=== PATIENT | male | born 1975 | race Caucasian/White ===

== ENCOUNTER 2023-07-08 06:53 | Outpatient (CLI) | payer MEDICARE, SELFPAY ==
--- NOTE | 2023-07-08 07:15 | CRLHL7_ITS ---
For Patients: As a result of the Century Cures Act, medical imaging exams and procedure reports are released immediately into your electronic medical record. You may view this report before your referring provider. If you have questions, please contact your health care provider. Indication: MS, RELAPSING/REMITTING Technique: Noncontrast sagittal T1, axial FLAIR, T2 turbo spine echo, and diffusion weighted images. Supplemental post contrast T1 weighted axial and coronal sequences are provided after administration of 20 mL gadolinium-based IV contrast. Comparison: MRI 04/10/2022 Findings: No mass effect or midline shift. No hydrocephalus. Multiple scattered foci of T2/FLAIR signal hyperintensity are noted in the subcortical and periventricular white matter both cerebral hemispheres as well as in the brainstem and cerebellum. Moderate generalized parenchymal volume loss. No new lesions identified. No pathologic enhancement. Expected intracranial vascular flow voids are preserved. Rightward deviation of the nasal septum. Polypoid mucosal thickening in the right maxillary sinus. The orbits are unremarkable. The scalp and soft tissues are grossly normal. Calvarium bone marrow signal is within normal limits. Impression : 1. No acute intracranial abnormality. 2. Stable moderate scattered foci of T2 prolongation in the supratentorial and infratentorial at matter compatible with chronic demyelinating plaques. No new lesions identified. 3. Stable moderate cerebral parenchymal volume loss and atrophy of the corpus callosum. 4. No pathologic enhancement to suggest active demyelination. Dictated by Juan Paulino MD @ 07/08/2023 12:41:25 PM (Electronically Signed)
--- NOTE | 2023-07-08 08:15 | CRLHL7_ITS ---
For Patients: As a result of the Century Cures Act, medical imaging exams and procedure reports are released immediately into your electronic medical record. You may view this report before your referring provider. If you have questions, please contact your health care provider. Indication: MS, RELAPSING/REMITTING. Technique: Noncontrast sagittal T1, T2, proton density, STIR and axial GRE sequences are provided. Sagittal and axial T1 postcontrast images obtained after administration of 20 cc Dotarem IV contrast. Comparison: MR cervical spine 04/10/2022 Findings: Normal cervical spine alignment. Vertebral body heights are maintained. No fractures. No prevertebral or paraspinal edema. No aggressive osseous lesions. Ankylosis of the C6-7 vertebral bodies. Stable multifocal T2 hyperintense lesions in the cervical spinal cord compatible with chronic demyelinating plaques. No new lesions identified. No pathologic enhancement. C1-2: No spinal canal stenosis C2-3: Moderate facet arthrosis. Mild bilateral neural foramen narrowing. No significant spinal canal stenosis. C3-4: Moderate facet arthrosis bilaterally. Mild bilateral neural foramen narrowing. No significant spinal canal stenosis. C4-5: Moderate facet arthrosis. No significant spinal canal stenosis or neural foramen narrowing. C5-6: Mild disc bulge indents the ventral thecal sac. Mild facet arthrosis. Mild bilateral neural foramen narrowing. No significant spinal canal stenosis. C6-7: No significant spinal canal stenosis or neural foramen narrowing. C7-T1: No significant spinal canal stenosis or neural foramen narrowing. Impression : 1. Normal alignment. No acute osseous or ligamentous abnormality. 2. Stable multifocal T2 hyperintense lesions in the spinal cord compatible with chronic demyelinating plaques. No new lesions identified. 3. No pathologic enhancement to suggest active demyelination. Dictated by Juan Paulino MD @ 07/08/2023 12:53:08 PM (Electronically Signed)
--- NOTE | 2023-07-08 09:15 | CRLHL7_ITS ---
For Patients: As a result of the Century Cures Act, medical imaging exams and procedure reports are released immediately into your electronic medical record. You may view this report before your referring provider. If you have questions, please contact your health care provider. INDICATION : Multiple sclerosis follow-up. TECHNIQUE : Thoracic spine MRI with contrast. Demyelination protocol. The following sequences were obtained: Sagittal T1, T2 weighted and proton density sequences. Axial gradient sequence. Axial and sagittal T1 weighted post contrast sequences. 20 cc of DuoDerm gadolinium based intravenous contrast agent was used. Comparison is made to thoracic spine MRI from 04/10/2022. FINDINGS: Multiple T2 hyperintense lesions within the thoracic cord, T3-4 centrally/dorsally, T5 centrally, T6-7 centrally/dorsally T9 dorsally, and multifocally at T10 through the conus. No enhancing thoracic cord lesions. No cord atrophy. Normal alignment and curvature of the thoracic spine. No acute fracture or aggressive marrow lesion.Low T2 signal focus within the right renal pelvis, likely a calculus. Thoracic discs and facets are normal. No spinal canal or neural foraminal stenosis at any thoracic level. IMPRESSION: 1. Stable MRI compared 04/10/2022. Multiple chronic demyelinating plaques throughout the thoracic cord are again demonstrated. 2. No enhancing thoracic cord lesions to suggest active demyelination. Dictated by Rivas Parker MD @ 07/08/2023 1:05:58 PM (Electronically Signed)
== END 2023-07-08 06:54 | disposition home or self-care (01) ==
PROVIDERS: Visit Provider Psychiatry & Neurology Neurology
DX: G35 Multiple sclerosis (principal); G31.9 Degenerative disease of nervous system, unspecified
CPT/HCPCS: 70553; 72156; 72157; A9575

== ENCOUNTER 2024-03-28 07:13 | Outpatient (CLI) | payer MEDICARE, SELFPAY | END 2024-03-28 07:14 | disposition home or self-care (01) | LOC: AMB 03-29 15:10 | PROVIDERS: Visit Provider Family Medicine | DX: R53.1 Weakness (principal); R50.9 Fever, unspecified | CPT/HCPCS: A0425; A0427 ==

== ENCOUNTER 2024-03-28 07:52 | Inpatient (IN) | payer MEDICARE, SELFPAY ==
[2024-03-28] VITALS (23 sets, daily range): BP systolic 105–170; BP diastolic 70–115; PULSE 78–101; RESP 12–20; TEMP 36.8–39.4; O2SAT 93–100; BMI 26.6; BMI 24.1
--- NOTE | 2024-03-28 08:03 | ED.GENADULT ---
HPI - General Adult General Date Seen: 03/28/24 Chief complaint: Weakness Stated complaint: fall Time Seen by Provider: 03/28/24 07:59 History of Present Illness HPI narrative: This is a 48-year-old male with history of multiple sclerosis, presenting to the ER today with his from home for evaluation of weakness and falls and fever. History is somewhat limited from the patient because he is confused and an unreliable historian. History is obtained in part from the patient and is supplemented by his . His was sick, beginning March 17, about 12 days ago with URI symptoms and tested positive for COVID. She is now better and no longer febrile or symptomatic. The patient has been sick for a few days. He has apparently been having urinary frequency for perhaps a week. He apparently did not tell his about it. He does often have to wear depends undergarments because of his MS. This week he has been wearing them almost continuously because he has frequent urgent needs to urinate and would be incontinent without them. notes that yesterday he seemed a bit weaker than normal and more unsteady than normal and had 1 ground level fall. He began to run a fever yesterday and ran a fever up to 103 F this morning. This morning his is going to bring him to the doctor to him checked out because of the fever and the weakness. They were walking from their house into the garage when he just got so weak that his legs gave out and he fell to the garage floor. He did not trip. He did not faint or black out. No associated palpitations, trouble breathing, chest pain led to his falling. He was not injured in the fall. notes that in addition to the fever he has been much more confused than normal, weaker than normal, and unsteady. He apparently was drinking plenty of fluids last night because when he woke up this morning his undergarment was saturated with urine. He has not had any rash. No cough. No stuffy nose. No sore throat. The no abdominal pain. No back pain. Bowel movements have been normal. No bloody stools. No diarrhea. No swelling in his legs. No headache Related Data Home Medications ?Medication ?Instructions ?Recorded ?Confirmed baclofen 10 mg tablet 10 mg PO 3XD 03/28/24 03/28/24 topiramate 200 mg tablet (Topamax) 200 mg PO DAILY 03/28/24 03/28/24 Allergies Allergy/AdvReac Type Severity Reaction Status Date / Time No Known Drug Allergies Allergy Verified 03/28/24 08:12 [facility] Social History Smoking Status: Never smoker Do you use any of these nicotine containing products: None How often do you have a drink containing alcohol: never AUDIT-C Alcohol total score: 0 Non-prescribed substance use: denies use Exam Narrative: Exam Narrative: Constitutional: Appears well-developed and well-nourished. Alert. He can carry on a conversation but seems a little bit unreliable in his history. When we talk about his illness, he initially says that he has been sick with urinary frequency since yesterday. Later I says it has been since last week, laid down he says it has been for a few days. Initially says his fever started this morning, then says it started yesterday. It sounds like he is just not clear about when his symptoms began. He seems mildly confused. HENT: Head: Atraumatic. Nose: Nose normal. Mouth/Throat: Oral mucosa is clear and moist. no trismus. Pharynx normal. Tonsils symmetric. No tonsillar enlargement, erythema, or exudate. Eyes: Conjunctivae normal. EOM normal. Pupils equal, round, and reactive to light. No scleral icterus. Neck: Normal range of motion. Neck supple. No tracheal deviation present. Cardiovascular: Normal rate, regular rhythm. No gallop. No friction rub. No murmur heard. Symmetric radial artery pulses . No JVD Pulmonary/Chest: Effort normal. No stridor. No respiratory distress. No wheezes. No rales. No rhonchi . No tenderness. Abdominal: Soft. No distension. No mass. No tenderness. No CVA tenderness No rebound. No guarding. Musculoskeletal: RUE: Normal range of motion. No tenderness. No deformity LUE: Normal range of motion. No tenderness. No deformity RLE: Normal range of motion. No edema. No tenderness. No deformity LLE: Normal range of motion. No edema. No tenderness. No deformity Neurological: Alert and oriented to person, place, and time. Normal strength. Generalized weakness and cannot walk without assistance for balance. No focal deficits. CN II-VII intact. No sensory deficit. GCS eye subscore is 4. GCS verbal subscore is 5. GCS motor subscore is 6. Normal coordination Skin: Skin is warm and dry. No rash noted. No pallor. Normal capillary refill. Psychiatric: Normal mood. Normal affect. Const: Vital Signs, click to edit/add: Vital Signs - 24 hr 03/28/24 08:06 03/28/24 08:30 03/28/24 08:31 Temperature 100.7 F H 100.7 F H Pulse Rate 100 Pulse Rate [Right Pulse Oximeter] 99 Respiratory Rate 20 14 Blood Pressure Blood Pressure [Ri ght Upper Arm] 124/87 Pulse Oximetry 98 100 Oxygen Delivery Me thod Room Air 03/28/24 09:04 03/28/24 09:31 03/28/24 10:01 Temperature Pulse Rate 95 91 86 Pulse Rate [Right Pulse Oximeter] Respiratory Rate 16 14 16 Blood Pressure 116/76 117/74 105/70 Blood Pressure [Ri ght Upper Arm] Pulse Oximetry 97 96 93 Oxygen Delivery Me thod 03/28/24 10:32 03/28/24 10:48 03/28/24 11:01 Temperature 98.2 F 98.2 F Pulse Rate 89 83 Pulse Rate [Right Pulse Oximeter] Respiratory Rate 14 16 Blood Pressure 107/70 110/74 Blood Pressure [Ri ght Upper Arm] Pulse Oximetry 97 97 Oxygen Delivery Me thod 03/28/24 11:31 03/28/24 12:01 03/28/24 12:30 Temperature Pulse Rate 78 81 84 Pulse Rate [Right Pulse Oximeter] Respiratory Rate 12 14 Blood Pressure 109/72 117/77 Blood Pressure [Ri ght Upper Arm] Pulse Oximetry 97 98 100 Oxygen Delivery Me thod Course Vital Signs Vital signs: Initial Vital Signs Temperature 100.7 F H 03/28/24 08:06 Temperature Source Temporal Artery Scan 03/28/24 08:06 Pulse Rate 99 03/28/24 08:06 Pulse Rhythm Regular 03/28/24 08:06 Respiratory Rate 20 03/28/24 08:06 Blood Pressure 124/87 03/28/24 08:06 Blood Pressure Mean 99 03/28/24 08:06 Blood Pressure Position Supine 03/28/24 08:06 Pulse Oximetry 98 03/28/24 08:06 Oxygen Delivery Method Room Air 03/28/24 08:06 Vital Signs Temperature 100.7 F H 03/28/24 08:06 Pulse Rate 99 08/12/24 08:06 Respiratory Rate 20 03/28/24 08:06 Blood Pressure 124/87 03/28/24 08:06 Pulse Oximetry 98 03/28/24 08:06 Oxygen Delivery Method Room Air 03/28/24 08:06 Temperature 98.2 F 03/28/24 10:48 Pulse Rate 84 03/28/24 12:30 Respiratory Rate 14 03/28/24 12:01 Blood Pressure 117/77 03/28/24 12:01 Pulse Oximetry 100 03/28/24 12:30 Oxygen Delivery Method Room Air 03/28/24 08:06 Medications Administered Medications: Discontinued Medications Generic Name Dose Route Start Last Admin Trade Name Freq PRN Reason Stop Dose Admin Acetaminophen 1,000 mg 03/28/24 08:20 03/28/24 08:31 Acetaminophen 500 Mg Tablet PO 03/28/24 08:21 1,000 mg ONCE ONE Administration Sodium Chloride 1,000 mls @ 1,000 mls/hr 03/28/24 08:30 03/28/24 09:35 0.9 % Sodium Chloride 1000 Ml IV 03/28/24 09:29 Infused .Q1H NAVJOT Infusion Ceftriaxone Sodium 1 gm/ 100 mls @ 200 mls/hr 03/28/24 12:43 03/28/24 13:23 Sodium Chloride IVPB 03/28/24 12:44 200 mls/hr ONCE ONE Administration Medical Decision Making [facility] Narrative Medical decision making narrative: Pleasant 48-year-old male with a history of MS, presenting to the ER today from home for evaluation of fever, generalized weakness, acute confusion for the past couple of days, which led to a mechanical fall this morning. The fall was not a syncopal event but rather he was just weak and his legs gave out. EKG was obtained to make sure there was no cardiac arrhythmia or ischemia and is normal. He does have a fever with a temp up to 103 at home this morning. Presenting temperature was 100.7?. Fever came down with Tylenol administration. He had normal blood pressure but did present with tachycardia, heart rate around 105 on the monitor. Tachycardia improved after 1 L of IV crystalloid. Differential for the fevers broad. He does not have any cough that did just recently have COVID. Coronavirus/influenza/RSV PCR is negative. Chest x-ray is equivocal. There may be some subtle bibasilar infiltrates or possibly just underinflation from poor breathing during the x-ray. Since he is not hypoxic and has not had any cough, would favor that his x-ray is probably due to atelectasis rather than true infiltrates. Urinalysis shows UTI. will treat with Rocephin. Urine culture pending. Discussed blood cultures with our accepting hospitalist. At this point given the current blood culture bottle shortage, since the patient is not showing signs of bacteremia, will hold off on blood cultures and rely on the urine culture to reveal a pathogen with sensitivities. Suspect that the patient's altered mental status is delirium from the UTI. With no headache, neck stiffness, low suspicion for meningitis or encephalitis. Would hold off on lumbar puncture for now. Consider possible sepsis. White count is 13. He did have presenting tachycardia. No hypotension or signs of shock. Venous lactic acid is normal at 0.6. Creatinine is elevated at 1.9. We do not have any previous baseline for comparison. does not recall any previous history of kidney disease so I assume this is probably an acute kidney injury. Lab Data Labs: Lab Results 03/28/24 03/28/24 03/28/24 Range/Units 08:30 08:55 12:12 WBC 13.22 H (4.50-11.00) K/uL RBC 5.03 (4.30-5.90) m/uL Hgb 14.5 (13.5-17.5) gm/dL Hct 43.3 (37.0-53.0) % MCV 86 (80-100) fL MCH 29 (26-34) pg MCHC 34 (32-36) gm/dL RDW Coeff of Kwame 13.1 (11.5-15.5) % Plt Count 194 (140-440) K/uL Neut % (Auto) 84.3 H (42.0-72.0) % Lymph % (Auto) 6.1 L (20-44) % [place] % (Auto) 9.2 (0.0-11.0) % Eos % (Auto) 0.0 (0.0-7.0) % Baso % (Auto) 0.2 (0.0-3.0) % Neut # (Auto) 11.10 H (1.7-7.0) K/uL Lymph # (Auto) 0.80 L (0.90-2.90) K/uL [place] # (Auto) 1.20 H (0.00-0.90) K/UL Eos # (Auto) 0.00 (0.00-0.50) K/uL Baso # (Auto) 0.00 (0.00-0.30) K/uL Abs Immat Gran (auto) 0.00 (0.00-0.30) K/uL Imm/Tot Granulo (auto) 0.2 % Sodium 135 (135-149) mmol/L Potassium 4.4 (3.6-5.1) mmol/L Chloride 102 (96-114) mmol/L Carbon Dioxide 23 (20-32) mmol/L Anion Gap 10 (7-15) mEq/L BUN 23 (7-30) mg/dL Creatinine 1.9 H (0.5-1.5) mg/dL Estimated Creat Clear 43.49 Estimated GFR 42 ml/min Glucose 122 H (60-115) mg/dL Lactate 0.6 (0.5-1.9) mmol/L Calcium 9.4 (8.4-10.6) mg/dL Urine Color Yellow (Yellow) Urine Appearance Cloudy A (Clear) Urine pH 5.5 (5.0-8.5) Ur Specific [place] >= 1.030 (1.000-1.030) Urine Protein 2+ A (Negative) Urine Glucose (UA) Negative (Negative) Urine Ketones 1+ A (Negative) Urine Blood 3+ A (Negative) Urine Nitrite Negative (Negative) Urine Bilirubin Negative (Negative) Urine Urobilinogen 0.2 (0.2-1.0) Ur Leukocyte Esterase 1+ A (Negative) Urine RBC 5-10 A (0-2) Urine WBC 25-50 A (0-5) Ur Squamous Epith Cells Few (None-Few) Urine Bacteria Many A (None) SARS-CoV-2 (PCR) Negative SARS-CoV-2 (Negative) Influenza Type A (PCR) Negative PCR FLU A (Negative) Influenza Type B (PCR) Negative PCR FLU B (Negative) RSV (PCR) Negative PCR RSV (Negative) Imaging Data Chest x-ray: Attestation: I have reviewed the pertinent imaging results. Radiologist's impression: Impression: Hypoinflated lungs with minimal hazy basilar airspace opacities which may represent atelectasis due to underinflation. Differential includes developing/atypical pneumonia. ECG Data Attestation: I personally reviewed and interpreted this ECG as follows: Interpretation: Normal sinus rhythm Rate: 96 SD: 122 QRS axis: Normal ST segment/T wave: No ST segment elevation or depression. QTc: 421
--- NOTE | 2024-03-28 08:20 | CRLHL7_ITS ---
For Patients: As a result of the Cures Act, medical imaging exams and procedure reports are released immediately into your electronic medical record. You may view this report before your referring provider. If you have questions, please contact your health care provider. Indication: Fever, COVID exposure. Technique: Two view(s) of the chest. Comparison: None available. Findings: Normal cardiomediastinal silhouette. Lungs are mildly hypoinflated with bronchovascular crowding. Minimal hazy basilar airspace opacities bilaterally without dense consolidation. No pleural effusion. No pneumothorax. No acute osseous abnormality identified. Impression: Hypoinflated lungs with minimal hazy basilar airspace opacities which may represent atelectasis due to underinflation. Differential includes developing/atypical pneumonia. Dictated by Cristina Rogers MD @ 03/28/2024 9:02:52 AM (Electronically Signed)
[2024-03-28] MEDS: ACETAMINOPHEN 500 MG TABLET 1000 MG PO (08:31)
[2024-03-28] MEDS: 0.9 % SODIUM CHLORIDE 1000 ml 1,000 ML IV ×2 (08:31→22:48)
[2024-03-28 09:05] LABS: Basophils Percent Auto 0.2 % (0.0-3.0); Hematocrit 43.3 % (37.0-53.0); Hemoglobin* 14.5 gm/dL (13.5-17.5); Immature Granulocytes Pct Auto 0.2 %; Lactate* 0.6 mmol/L (0.5-1.9); Lymphocytes Percent Auto 6.1 % (20-44); Mean Corpuscular HGB Conc 34 gm/dL (32-36); Mean Corpuscular Hemoglobin 29 pg (26-34); Mean Corpuscular Volume 86 fL (80-100); Monocytes Percent Auto 9.2 % (0.0-11.0); Neutrophils Percent Auto 84.3 % (42.0-72.0); Platelet Count* 194 K/uL (140-440); RDW Coefficient of Variation % 13.1 % (11.5-15.5); Red Blood Count 5.03 m/uL (4.30-5.90); White Blood Count* 13.22 K/uL (4.50-11.00)
[2024-03-28 09:06] LABS: Slide Review Reflex No
[2024-03-28 09:24] LABS: Chloride* 102 mmol/L (96-114); Potassium* 4.4 mmol/L (3.6-5.1); Sodium* 135 mmol/L (135-149)
[2024-03-28 09:27] LABS: Anion Gap 10 mEq/L (7-15); Blood Urea Nitrogen* 23 mg/dL (7-30); Carbon Dioxide* 23 mmol/L (20-32); Creatinine* 1.9 mg/dL (0.5-1.5); Est. Creatinine Clearance* 43.49; Estimated Glomerular Filt Rate 42 ml/min; Glucose* 122 mg/dL (60-115)
[2024-03-28 09:27] LABS: PCR FLU A Negative PCR FLU A (Negative); PCR FLU B Negative PCR FLU B (Negative); PCR RSV Negative PCR RSV (Negative); SARS PCR* Negative SARS-CoV-2 (Negative)
[2024-03-28 09:28] LABS: Calcium* 9.4 mg/dL (8.4-10.6)
[2024-03-28 12:18] LABS: Appearance Urine Cloudy (Clear); Bilirubin Urine Negative (Negative); Blood Urine 3+ (Negative); Color Urine Yellow (Yellow); Glucose Urine Negative (Negative); Ketones Urine 1+ (Negative); Leukocyte Esterase Urine 1+ (Negative); Nitrite Urine Negative (Negative); Protein Urine 2+ (Negative); Specific Gravity Urine >= 1.030 (1.000-1.030); Urobilinogen Urine 0.2 (0.2-1.0); pH Urine 5.5 (5.0-8.5)
[2024-03-28 12:36] LABS: Bacteria Urine Many; Squamous Epithelial Cell Urine Few (None-Few); WBC Urine 25-50 (0-5)
[2024-03-28] MEDS: cefTRIAXone 1 GM in 0.9 % SODIUM CHLORIDE Mini-bag 100 ML IVPB (13:23)
[2024-03-28] MEDS: BACLOFEN 10 MG TABLET PO ×2 (15:47→21:00)
--- NOTE | 2024-03-28 15:53 | PM.IMHP1 ---
Hospitalist- H&P: HPI History of Present Illness Date Seen: 03/28/24 Chief complaint: fall Narrative: Colby Aleman is a 48 year old man with longstanding history of multiple sclerosis, relapsing-remitting, followed by Dr. Shiva Blunt, neurologist, [facility], with complication of incomplete bladder emptying due to multiple sclerosis for which he follows with Dr. Lewis, Urology, [place] [facility]. He presents to our emergency department today accompanied by his with a 1 day history of fever, weakness, confusion, unsteady gait, a fall. He notes that he has had urinary frequency and urgency without dysuria or hematuria. Often utilize his incontinent products peer has had increasing incontinence this past 5-7 days. Became noticeably weaker, unsteady on his feet, and 1 fall. Was walking with his to the car so they could get to the clinic for an assessment today when his legs gave out any felt the garage floor. Did not trip. Did not faint. No blackout. No injury. notes that his level of confusion has been gradually worsened over the last 1-2 days. On the 17 of March his had fever and URI symptoms in tested positive for COVID. Review of Systems Status of ROS: Reports: 10 or more systems reviewed and unremarkable except as noted in History and below Narrative: He tells me he has medical disability on account of his multiple sclerosis. 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 He tells me he tries to keep busy in the house now days such as laundry, dishes, mopping, cleaning. Lives with his , Maida. They have 2 daughters who live in the [facility]. He has 1 granddaughter. Requests that his be his power of trial attorney for health should that be required. Requests full resuscitation in the event of cardiopulmonary demise. No longer uses tobacco products. Quit about 15 years ago. Might drink 1-2 bottles of beer 1 or 2 times a month at the most. Denies use of marijuana or any other street or recreational drugs. No other localizing symptoms. COVID testing, influenza testing, and RSV testing are all negative today. [facility] Medical History (Updated 03/28/24 @ 16:26 by Zach Liu MD) Incomplete bladder emptying ?R33.9 - Retention of urine, unspecified (ICD-10) Colon polyp ?K63.5 - Polyp of colon (ICD-10) Unstable gait ?R26.81 - Unsteadiness on feet (ICD-10) Multiple sclerosis, relapsing-remitting ?G35 - Multiple sclerosis (ICD-10) Surgical History History of colonoscopy ?Z98.890 - Other specified postprocedural states (ICD-10) Family History (Updated 03/28/24 @ 15:50 by Zach Liu MD) Father Colon cancer Sister Diabetes Multiple sclerosis Social History (Updated 03/28/24 @ 15:53 by Zach Liu MD) Narrative: Lives with , Maida, whom he designates as POA should that be required. Medically disabled. Requests full resuscitation in event of cardiopulmonary demise. What is your current living situation?: I presently have a place to live Problems where you live: no known problems Problems where you live details: none In the past 12 months, utilities in danger of being shut off: no In past 12 months, lack of transportation kept you from medical appts, meetings, work, or getting things needed for daily living: no In the past 12 mos, have been you worried that your food would run out before you had money to buy more?: never true In the past 12 mos, the food you bought just didn't last and you didn't have money to buy more?: never true Smoking Status: Never smoker Do you use any of these nicotine containing products: None How often do you have a drink containing alcohol: never AUDIT-C Alcohol total score: 0 Non-prescribed substance use: denies use How often does anyone, including family, friends and others, physically hurt you: never How often does anyone, including family, friends and others, insult or talk down to you: never How often does anyone, including family, friends and others, threaten you with harm: never How often does anyone, including family, friends and others, scream or curse at you: never Meds Home Medications and Allergies Home Medications ?Medication ?Instructions ?Recorded ?Confirmed ?Type baclofen 10 mg tablet 10 mg PO TID 03/28/24 03/28/24 History topiramate 100 mg tablet (Topamax) 100 mg PO DAILY 03/28/24 03/28/24 History Home Medication Comments: Current dose of topiramate is 200 mg every morning. Allergies Allergy/AdvReac Type Severity Reaction Status Date / Time No Known Drug Allergies Allergy Verified 03/28/24 08:12 Exam Narrative: Exam Narrative: Examine him in his hospital room. Appears comfortable and in no acute distress. Vision and hearing are adequate. Seemingly alert and oriented to self, place, somewhat to time, somewhat to situation. Somewhat anxious. Friendly, articulate, cooperative. Tympanic membranes and external auditory canals are normal. Midline nasal septum. Dentition in fair repair. Dry buccal mucosa. Conjugate gaze. No icterus. Neck is supple. Midline trachea. No head neck lymphadenopathy. Lungs are clear to auscultation without wheezing, rhonchi, or rales. Chest wall excursions are full. No CVA tenderness. Heart tones with regular rhythm, normal S1-S2, without murmur, gallop, or rub. PMI is not laterally displaced. Abdomen with active bowel sounds, soft, nontender. Possibly some fullness in the suprapubic area of the pelvis. Extremities without edema. Baseline tremors of both hands. No asterixis. Drooping right eyelid. Cranial nerves 3-12 otherwise grossly normal. Strength testing of upper extremities and lower extremities are symmetric. I do not assess his ability to walk. Independent in transfers from supine to sitting. Does have exertional tremulousness. Const: Vital Signs, click to edit/add: Vital Signs - 24 hr 03/28/24 08:06 03/28/24 08:30 03/28/24 08:31 Temperature 100.7 F H 100.7 F H Pulse Rate 100 Pulse Rate [Left R adial] Pulse Rate [Right Pulse Oximeter] 99 Respiratory Rate 20 14 Blood Pressure Blood Pressure [Le ft Arm] Blood Pressure [Ri ght Upper Arm] 124/87 Pulse Oximetry 98 100 Oxygen Delivery Me thod Room Air 03/28/24 09:04 03/28/24 09:31 03/28/24 10:01 Temperature Pulse Rate 95 91 86 Pulse Rate [Left R adial] Pulse Rate [Right Pulse Oximeter] Respiratory Rate 16 14 16 Blood Pressure 116/76 117/74 105/70 Blood Pressure [Le ft Arm] Blood Pressure [Ri ght Upper Arm] Pulse Oximetry 97 96 93 Oxygen Delivery Me thod 03/28/24 10:32 03/28/24 10:48 03/28/24 11:01 Temperature 98.2 F 98.2 F Pulse Rate 89 83 Pulse Rate [Left R adial] Pulse Rate [Right Pulse Oximeter] Respiratory Rate 14 16 Blood Pressure 107/70 110/74 Blood Pressure [Le ft Arm] Blood Pressure [Ri ght Upper Arm] Pulse Oximetry 97 97 Oxygen Delivery [facility] 03/28/24 11:31 03/28/24 12:01 03/28/24 12:30 Temperature Pulse Rate 78 81 84 Pulse Rate [Left R adial] Pulse Rate [Right Pulse Oximeter] Respiratory Rate 12 14 Blood Pressure 109/72 117/77 Blood Pressure [Le ft Arm] Blood Pressure [Ri ght Upper Arm] Pulse Oximetry 97 98 100 Oxygen Delivery [facility] 03/28/24 12:45 03/28/24 13:00 03/28/24 13:03 Temperature Pulse Rate 87 84 84 Pulse Rate [Left R adial] Pulse Rate [Right Pulse Oximeter] Respiratory Rate Blood Pressure 170/115 H Blood Pressure [Le ft Arm] Blood Pressure [Ri ght Upper Arm] Pulse Oximetry 100 99 99 Oxygen Delivery [facility] 03/28/24 13:15 03/28/24 13:30 03/28/24 13:50 Temperature 99.0 F Pulse Rate 84 97 Pulse Rate [Left R adial] 88 Pulse Rate [Right Pulse Oximeter] Respiratory Rate 20 Blood Pressure Blood Pressure [Le ft Arm] 141/82 H Blood Pressure [Ri ght Upper Arm] Pulse Oximetry 100 100 98 Oxygen Delivery [facility] Room Air 03/28/24 13:52 Temperature 98.2 F Pulse Rate Pulse Rate [Left R adial] Pulse Rate [Right Pulse Oximeter] 99 Respiratory Rate 14 Blood Pressure Blood Pressure [Le ft Arm] Blood Pressure [Ri ght Upper Arm] 124/87 Pulse Oximetry Oxygen Delivery [facility] Hospitalist - H&P: Result Labs Labs: Short CBC 03/28/24 Range/Units 08:55 WBC 13.22 H (4.50-11.00) K/uL Hgb 14.5 (13.5-17.5) gm/dL Hct 43.3 (37.0-53.0) % Plt Count 194 (140-440) K/uL BMP 03/28/24 08:55 Sodium 135 Potassium 4.4 Chloride 102 Carbon Dioxide 23 BUN 23 Creatinine 1.9 H Glucose 122 H Calcium 9.4 Urine 03/28/24 Range/Units 12:12 Urine Color Yellow (Yellow) Urine Appearance Cloudy A (Clear) Urine pH 5.5 (5.0-8.5) Ur Specific [place] >= 1.030 (1.000-1.030) Urine Protein 2+ A (Negative) Urine Glucose (UA) Negative (Negative) Assessment and Plan Assessment and plan (1) Acute cystitis: Problem comment: - 03/28/2024: Fever, urinary frequency, abnormal urinalysis. Urine culture obtained with results pending. Started on ceftriaxone IV. Status: Acute (2) Sepsis: Problem comment: - early sepsis, NEWS2 score: 5 (1 temp, 1 HR, 3 consciousness), moderate risk for sepsis - acute cystitis - serum lactate values normal. Initiated ceftriaxone for suspected urinary tract infection. Status: Acute (3) Dehydration: Problem comment: - IV fluids and monitor Status: Acute (4) Incomplete bladder emptying: Problem comment: - due to multiple sclerosis. - utilizes incontinence care products. - follows with Urology, [place] [facility], Dr. Lewis. - check postvoid residual volumes while in hospital and consider catheter if warranted. Status: Acute (5) Multiple sclerosis, relapsing-remitting: Problem comment: - in-hospital will have Physical therapy and Occupational therapy assess and recommend Status: Acute (6) Unstable gait: Problem comment: - fall precautions Status: Acute Plan 1. Reviewed impression and plan with patient and his , Maida. 2. Answered patient's and 's questions to their satisfaction. 3. Continue to work closely with patient and his . 4. Patient and agreeable with above stated plans and recommendations. Total Time Spent Total Time Spent: 60 min
--- NOTE | 2024-03-28 18:12 | PC.NURSE ---
End of shift note: Patient arrived to the unit early afternoon. He was slid from the ER cart to the bed upon arrival. Admission completed. at bedside. He was requesting to use the BR. Asked if he using any assistive devices at home. Both him and his states No. With his very jerky movements we did get a walker and had 3 people to try and help get him onto a commode. This did not go well as unsure if he is able to follow commands. Had him standing briefly but it was too unsafe to try and move him. Noted that he was inc once we did have him back in bed. Did change and wash up. Update Dr. Liu on that it appears he was not understanding directions given to him. He is requesting to do partial orthostatic with laying and sitting as it will be too difficult to get a standing b/p on him. Temp is currently 103.0
[2024-03-28] MEDS: ACETAMINOPHEN 325 MG TABLET 650 MG PO (18:25)
[2024-03-28] MEDS: ENOXAPARIN 40 MG/0.4 ML INJ SUBCUT (21:00)
[2024-03-28] MEDS: SODIUM CHLORIDE 0.9 % (FLUSH) 10 ML SYRINGE 5 ML IVF (21:00)
[2024-03-29] VITALS (10 sets, daily range): BP systolic 108–130; BP diastolic 64–92; PULSE 89–107; RESP 16–18; TEMP 37.2–39.1; O2SAT 96–100
[2024-03-29] MEDS: ACETAMINOPHEN 325 MG TABLET 650 MG PO ×3 (02:59→18:00)
--- NOTE | 2024-03-29 06:12 | PC.NURSE ---
Shift note : Pt has been in bed throughout the shift. Incontinence to bladder, brief changed PRN. Pt is alert and oriented but occasional confusion. Pt had fever of 102.8 at the start of the shift at 1930 but Tylenol was given and hour before temperature checked. Temperature repeated at 2200 and 0230 recorded 98.7 and 102.3 respectively. Tylenol 650mg given at 0300. Temperature rechecked at 0400 was 98.9. SCD and TEDs applied.
[2024-03-29 06:25] LABS: Lactate* 0.7 mmol/L (0.5-1.9)
[2024-03-29 06:30] LABS: Basophils Percent Auto 0.3 % (0.0-3.0); Eosinophils Percent Auto 0.1 % (0.0-7.0); Hematocrit 42.3 % (37.0-53.0); Hemoglobin* 14.1 gm/dL (13.5-17.5); Immature Granulocytes Pct Auto 0.7 %; Lymphocytes Percent Auto 11.1 % (20-44); Mean Corpuscular HGB Conc 33 gm/dL (32-36); Mean Corpuscular Hemoglobin 29 pg (26-34); Mean Corpuscular Volume 87 fL (80-100); Monocytes Percent Auto 10.6 % (0.0-11.0); Neutrophils Percent Auto 77.2 % (42.0-72.0); Platelet Count* 188 K/uL (140-440); RDW Coefficient of Variation % 13.3 % (11.5-15.5); Red Blood Count 4.86 m/uL (4.30-5.90); White Blood Count* 12.09 K/uL (4.50-11.00)
[2024-03-29 06:34] LABS: Slide Review Reflex No
[2024-03-29 06:47] LABS: Hemoglobin A1C* 5.6 % (0-5.6)
[2024-03-29 06:51] LABS: Chloride* 106 mmol/L (96-114); Potassium* 4.3 mmol/L (3.6-5.1); Sodium* 135 mmol/L (135-149)
[2024-03-29 06:54] LABS: Creatinine* 1.8 mg/dL (0.5-1.5); Est. Creatinine Clearance* 53.89; Estimated Glomerular Filt Rate 45 ml/min
[2024-03-29 06:55] LABS: Anion Gap 7 mEq/L (7-15); Blood Urea Nitrogen* 20 mg/dL (7-30); Calcium* 8.9 mg/dL (8.4-10.6); Carbon Dioxide* 22 mmol/L (20-32); Glucose* 107 mg/dL (60-115)
--- NOTE | 2024-03-29 07:25 | PM.IMPN1 ---
Progress Note: A&P Assessment and plan (1) Fever: Problem details: Of unknown source on admission Urine culture showing no growth. Leukocytosis trending down. CRP elevated No abdominal complaints, benign exam, no CT necessary at this time CXR shows basilar airspace opacities with differential of developing/atypical pneumonia. No pulmonary complaints otherwise Recent COVID exposure ( positive 03/17). COVID x2 negative - will continue daily as long as he continues to have fevers BC ordered Status: Acute (2) Pneumonia: Problem details: Will use as working dx for now given leukocytosis, elevated CRP, CXR findings Continue Zosyn (ceftriaxone discontinued), pending BC results, clinical improvement Strep pneumo/Legionella ordered Pulmonary hygiene Status: Acute (3) Sepsis: Problem details: - early sepsis, NEWS2 score: 5 (1 temp, 1 HR, 3 consciousness), moderate risk for sepsis - acute cystitis ruled out - serum lactate values normal. Initiated ceftriaxone for suspected urinary tract infection - discontinued, switched to Zosyn Status: Acute (4) SARTHAK (acute kidney injury): Problem details: Suspected SARTHAK. 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 - utilizes incontinence care products. - follows with Urology, [facility], Dr. Lewis. - check postvoid residual volumes while in hospital and consider catheter if warranted. Status: Acute (7) Multiple sclerosis, relapsing-remitting: Problem details: - in-hospital will have Physical therapy and Occupational therapy assess and recommend May need SNF, therapies evaluating Status: Acute (8) Unstable gait: Problem details: - fall precautions, PT/OT Status: Acute Time Spent With Patient Total time spent: Total time spent caring for the patient today was 45 minutes. This includes time spent for the visit reviewing the chart, time spent during the visit, time spent after the visit and documentation and planning in coordination of care. Subjective Date Seen: 03/29/24 Interval history: Patient is seen with nurse at bedside, assisting with feeding. He reports feeling better. Continues to have fevers > 102?. Tells me his confusion seems to be mostly resolved. Denies headache or dizziness. Denies chest pain or shortness of breath. No cough. No sputum production. Denies nausea vomiting. No change in urination or bowels. Remains weak, actually requiring+2 assist last night, however this morning was able to sit up in bed on his own. Will be working with therapies today. Exam Narrative: Exam Narrative: PHYSICAL EXAM General: Pleasant, conversant, NAD HEENT: Normocephalic, atraumatic, sclera white, EOMI, oral mucosa moist Cardiovascular: RRR, S1S2. No pitting edema Pulmonary: CTA bilaterally without rhonchi, rales, expiratory wheezes. No dyspnea on room air Abdominal: Soft, nondistended, NTTP Neurological: Alert, answering questions appropriately Extremities: No gross joint deformity or swelling. AROMI. Neurovascularly intact Skin: Warm, dry. Const: Vital Signs, click to edit/add: Vital Signs - 24 hr 03/28/24 08:06 03/28/24 08:30 03/28/24 08:31 Temperature 100.7 F H 100.7 F H Pulse Rate 100 Pulse Rate [Left R adial] Pulse Rate [Right Pulse Oximeter] 99 Pulse Rate [orthos tatic lying Left R adial] Pulse Rate [orthos tatic sitting Left Radial] Respiratory Rate 20 14 Blood Pressure Blood Pressure [Le ft Arm] Blood Pressure [Ri ght Upper Arm] 124/87 Blood Pressure [or thostatic lying Le ft Arm] Blood Pressure [or thostatic sitting Left Arm] Pulse Oximetry 98 100 Oxygen Delivery Me thod Room Air 03/28/24 09:04 03/28/24 09:31 03/28/24 10:01 Temperature Pulse Rate 95 91 86 Pulse Rate [Left R adial] Pulse Rate [Right Pulse Oximeter] Pulse Rate [orthos tatic lying Left R adial] Pulse Rate [orthos tatic sitting Left Radial] Respiratory Rate 16 14 16 Blood Pressure 116/76 117/74 105/70 Blood Pressure [Le ft Arm] Blood Pressure [Ri ght Upper Arm] Blood Pressure [or thostatic lying Le ft Arm] Blood Pressure [or thostatic sitting Left Arm] Pulse Oximetry 97 96 93 Oxygen Delivery Me thod 03/28/24 10:32 03/28/24 10:48 03/28/24 11:01 Temperature 98.2 F 98.2 F Pulse Rate 89 83 Pulse Rate [Left R adial] Pulse Rate [Right Pulse Oximeter] Pulse Rate [orthos tatic lying Left R adial] Pulse Rate [orthos tatic sitting Left Radial] Respiratory Rate 14 16 Blood Pressure 107/70 110/74 Blood Pressure [Le ft Arm] Blood Pressure [Ri ght Upper Arm] Blood Pressure [or thostatic lying Le ft Arm] Blood Pressure [or thostatic sitting Left Arm] Pulse Oximetry 97 97 Oxygen Delivery Me thod 03/28/24 11:31 03/28/24 12:01 03/28/24 12:30 Temperature Pulse Rate 78 81 84 Pulse Rate [Left R adial] Pulse Rate [Right Pulse Oximeter] Pulse Rate [orthos tatic lying Left R adial] Pulse Rate [orthos tatic sitting Left Radial] Respiratory Rate 12 14 Blood Pressure 109/72 117/77 Blood Pressure [Le ft Arm] Blood Pressure [Ri ght Upper Arm] Blood Pressure [or thostatic lying Le ft Arm] Blood Pressure [or thostatic sitting Left Arm] Pulse Oximetry 97 98 100 Oxygen Delivery Me thod 03/28/24 12:45 03/28/24 13:00 03/28/24 13:03 Temperature Pulse Rate 87 84 84 Pulse Rate [Left R adial] Pulse Rate [Right Pulse Oximeter] Pulse Rate [orthos tatic lying Left R adial] Pulse Rate [orthos tatic sitting Left Radial] Respiratory Rate Blood Pressure 170/115 H Blood Pressure [Le ft Arm] Blood Pressure [Ri ght Upper Arm] Blood Pressure [or thostatic lying Le ft Arm] Blood Pressure [or thostatic sitting Left Arm] Pulse Oximetry 100 99 99 Oxygen Delivery Me thod 03/28/24 13:15 03/28/24 13:30 03/28/24 13:50 Temperature 99.0 F Pulse Rate 84 97 Pulse Rate [Left R adial] 88 Pulse Rate [Right Pulse Oximeter] Pulse Rate [orthos tatic lying Left R adial] Pulse Rate [orthos tatic sitting Left Radial] Respiratory Rate 20 Blood Pressure Blood Pressure [Le ft Arm] 141/82 H Blood Pressure [Ri ght Upper Arm] Blood Pressure [or thostatic lying Le ft Arm] Blood Pressure [or thostatic sitting Left Arm] Pulse Oximetry 100 100 98 Oxygen Delivery Me thod Room Air 03/28/24 13:52 03/28/24 18:25 03/28/24 18:27 Temperature 98.2 F 103.0 F H Pulse Rate Pulse Rate [Left R adial] Pulse Rate [Right Pulse Oximeter] 99 Pulse Rate [orthos tatic lying Left R adial] 100 Pulse Rate [orthos tatic sitting Left Radial] 101 H Respiratory Rate 14 Blood Pressure Blood Pressure [Le ft Arm] Blood Pressure [Ri ght Upper Arm] 124/87 Blood Pressure [or thostatic lying Le ft Arm] 135/75 Blood Pressure [or thostatic sitting Left Arm] 129/76 Pulse Oximetry Oxygen Delivery Me thod 03/28/24 19:00 03/28/24 22:31 03/28/24 22:31 Temperature 102.8 F H Pulse Rate Pulse Rate [Left R adial] Pulse Rate [Right Pulse Oximeter] 96 99 Pulse Rate [orthos tatic lying Left R adial] Pulse Rate [orthos tatic sitting Left Radial] Respiratory Rate 14 14 16 Blood Pressure Blood Pressure [Le ft Arm] 131/78 Blood Pressure [Ri ght Upper Arm] Blood Pressure [or thostatic lying Le ft Arm] Blood Pressure [or thostatic sitting Left Arm] Pulse Oximetry 97 94 Oxygen Delivery Me thod Room Air Room Air 03/28/24 22:31 03/29/24 02:54 Temperature 98.7 F 102.3 F H Pulse Rate Pulse Rate [Left R adial] Pulse Rate [Right Pulse Oximeter] 99 103 H Pulse Rate [orthos tatic lying Left R adial] Pulse Rate [orthos tatic sitting Left Radial] Respiratory Rate 16 16 Blood Pressure Blood Pressure [Le ft Arm] 118/74 130/81 Blood Pressure [Ri ght Upper Arm] Blood Pressure [or thostatic lying Le ft Arm] Blood Pressure [or thostatic sitting Left Arm] Pulse Oximetry 94 96 Oxygen Delivery Me thod Room Air Room Air Labs Labs: Laboratory Results - last 24 hr 03/28/24 03/28/24 03/28/24 08:30 08:55 12:12 WBC 13.22 H RBC 5.03 Hgb 14.5 Hct 43.3 MCV 86 MCH 29 MCHC 34 RDW Coeff of Kwame 13.1 Plt Count 194 Neut % (Auto) 84.3 H Lymph % (Auto) 6.1 L [place] % (Auto) 9.2 Eos % (Auto) 0.0 Baso % (Auto) 0.2 Neut # (Auto) 11.10 H Lymph # (Auto) 0.80 L [place] # (Auto) 1.20 H Eos # (Auto) 0.00 Baso # (Auto) 0.00 Abs Immat Gran (auto) 0.00 Imm/Tot Granulo (auto) 0.2 Sodium 135 Potassium 4.4 Chloride 102 Carbon Dioxide 23 Anion Gap 10 BUN 23 Creatinine 1.9 H Estimated Creat Clear 43.49 Estimated GFR 42 Glucose 122 H Hemoglobin A1c Lactate 0.6 Calcium 9.4 C-Reactive Protein Urine Color Yellow Urine Appearance Cloudy A Urine pH 5.5 Ur Specific [place] >= 1.030 Urine Protein 2+ A Urine Glucose (UA) Negative Urine Ketones 1+ A Urine Blood 3+ A Urine Nitrite Negative Urine Bilirubin Negative Urine Urobilinogen 0.2 Ur Leukocyte Esterase 1+ A Urine RBC 5-10 A Urine WBC 25-50 A Ur Squamous Epith Cells Few Urine Bacteria Many A SARS-CoV-2 (PCR) Negative SARS-CoV-2 Influenza Type A (PCR) Negative PCR FLU A Influenza Type B (PCR) Negative PCR FLU B RSV (PCR) Negative PCR RSV 03/29/24 05:59 WBC 12.09 H RBC 4.86 Hgb 14.1 Hct 42.3 MCV 87 MCH 29 MCHC 33 RDW Coeff of Kwame 13.3 Plt Count 188 Neut % (Auto) 77.2 H Lymph % (Auto) 11.1 L [place] % (Auto) 10.6 Eos % (Auto) 0.1 Baso % (Auto) 0.3 Neut # (Auto) 9.30 H Lymph # (Auto) 1.30 [place] # (Auto) 1.30 H Eos # (Auto) 0.00 Baso # (Auto) 0.00 Abs Immat Gran (auto) 0.10 Imm/Tot Granulo (auto) 0.7 Sodium 135 Potassium 4.3 Chloride 106 Carbon Dioxide 22 Anion Gap 7 BUN 20 Creatinine 1.8 H Estimated Creat Clear 53.89 Estimated GFR 45 Glucose 107 Hemoglobin A1c 5.6 Lactate 0.7 Calcium 8.9 C-Reactive Protein 17.0 H Urine Color Urine Appearance Urine pH Ur Specific [place] Urine Protein Urine Glucose (UA) Urine Ketones Urine Blood Urine Nitrite Urine Bilirubin Urine Urobilinogen Ur Leukocyte Esterase Urine RBC Urine WBC Ur Squamous Epith Cells Urine Bacteria SARS-CoV-2 (PCR) Influenza Type A (PCR) Influenza Type B (PCR) RSV (PCR)
[2024-03-29] MEDS: BACLOFEN 10 MG TABLET PO ×3 (09:14→21:37)
[2024-03-29] MEDS: PIPERACILLIN/TAZOBACTAM 3.375 GM in 0.9 % SODIUM CHLORIDE Mini-bag 100 ML IVPB ×3 (09:15→21:38)
[2024-03-29] MEDS: SODIUM CHLORIDE 0.9 % (FLUSH) 10 ML SYRINGE 5 ML IVF ×2 (09:15→21:38)
[2024-03-29] MEDS: TOPIRAMATE 50 MG TABLET 100 MG PO (09:16)
[2024-03-29 09:23] LABS: PCR FLU A Negative PCR FLU A (Negative); PCR FLU B Negative PCR FLU B (Negative); PCR RSV Negative PCR RSV (Negative); SARS PCR* Negative SARS-CoV-2 (Negative)
--- NOTE | 2024-03-29 09:57 | NUTR.NU ---
RDN with nutrition screen related to positive skin risk. Patient admitted for weakness, found to have acute cystitis and sepsis. Past medical history includes multiple sclerosis. Current weight is 178 lb 5oz; height 6ft; BMI 24.2 kg/m2. Patient reports his usual body weight is about 175-180 lbs. Current diet is Regular. Per nursing documentation, patient consumed 100% of dinner 03/28/24. RDN visited with patient whom reports a good appetite and stable weight recently. He was eating breakfast during visit. He had no concerns or questions at this time. No nutrition interventions due to stable weight and normal intake. RDN will continue to monitor and follow-up prn.
[2024-03-29 11:31] LABS: Legionella pneumo Ag Urine L. pneumo Negative (Negative); S pneumo Ag Urine S. pneumo Negative (Negative)
[2024-03-29] MEDS: IBUPROFEN 400 MG TABLET PO (16:56)
--- NOTE | 2024-03-29 20:09 | CRLHL7_ITS ---
For Patients: As a result of the 21st Century Cures Act, medical imaging exams and procedure reports are released immediately into your electronic medical record. You may view this report before your referring provider. If you have questions, please contact your health care provider. INDICATION: Fever. TECHNIQUE: CT chest, abdomen, and pelvis without contrast. COMPARISON: Chest radiographs 03/28/2024. FINDINGS: CHEST: Lungs and pleura: Few linear parenchymal bands, likely representing subsegmental atelectasis. Otherwise no acute infiltrates. Few scattered sub 6 mm pulmonary nodules. Conference Manager examples include 4 mm right lower lobe subpleural nodule (series 3, image 67), 4 mm right middle lobe nodule (series 3, image 59), 5 mm right middle lobe nodule (series 3, image 55), and 2 mm right upper lobe nodule (series 3, image 36). No pleural effusions or pneumothorax. Cardiovascular structures: Heart size is normal. Thoracic aorta and main pulmonary artery are normal in caliber. Mediastinum and [place]: No mass or adenopathy. Chest wall and axilla: No mass or adenopathy. Bones: Unremarkable for age. ABDOMEN AND PELVIS: Liver: Focal fatty infiltration adjacent to the falciform ligament. Gallbladder and bile ducts: Cholelithiasis. No inflammation. No biliary ductal dilatation. Spleen: Unremarkable. Adrenal glands: Unremarkable. Pancreas: Unremarkable. Kidneys: 11 mm calculus in the right renal hilum with mild hydronephrosis. 8 mm calculus in the distal left ureter with moderate upstream hydroureteronephrosis. Mild asymmetric left perinephric stranding. Bilateral nonobstructive renal calculi. GI tract: Unremarkable. Lymph nodes: Unremarkable. Vascular structures: Abdominal aorta is normal in caliber. Miscellaneous: Unremarkable. No free air or significant free fluid. Pelvic organs: Unremarkable. Bones: Unremarkable for age. IMPRESSION: 1. 8 mm distal left ureteral calculus with moderate upstream hydroureteronephrosis. Mild asymmetric left perinephric stranding, which may be due to increased hydrostatic pressures or superimposed infectious process. Recommend correlation with urinalysis. 2. 11 mm right renal hilum calculus with mild hydronephrosis. 3. Bilateral nonobstructive nephrolithiasis. 4. No acute pulmonary process. 5. Few scattered sub 6 mm pulmonary nodules. Please see below for follow-up guidelines. 6. Cholelithiasis. SOCIETY GUIDELINES - SOLID NODULES: SINGLE LOW RISK - nodule less than 6 mm: No routine follow-up. - nodule 6-8 mm: CT at 6-12 months, then consider CT at 18-24 months. - nodule greater than 8 mm: Consider CT at 3 months, PET/CT or tissue sampling. SINGLE HIGH RISK - nodule less than 6 mm: Optional CT at 12 months. - nodule 6-8 mm: CT at 6-12 months, then CT at 18-24 months. - nodule greater than 8 mm: Consider CT at 3 months, PET/CT or tissue sampling. MULTIPLE LOW RISK - nodule less than 6 mm: No routine follow-up. - nodule 6-8 mm: CT at 3-6 months, then consider CT at 18-24 months. - nodule greater than 8 mm: CT at 3-6 months, then consider CT at 18-24 months. MULTIPLE HIGH RISK - nodule less than 6 mm: Optional CT at 12 months. - nodule 6-8 mm: CT at 3-6 months, then at 18-24 months. - nodule greater than 8 mm: CT at 3-6 months, then at 18-24 months. Please note that all CT scans at this facility use dose modulation, iterative reconstruction, and/or weight-based dosing when appropriate to reduce radiation dose to as low as reasonably achievable. Dictated by Raheel Fields MD @ 03/29/2024 10:19:19 PM (Electronically Signed)
--- NOTE | 2024-03-29 20:13 | PM.EN ---
Chart Event Note Time Seen by Provider: 20:10 Date Seen: 03/29/24 Chart Event Note: Persistent intermittent spiking fevers, without clear source. I looked at the microbiology urine culture plate tonight and there is still essentially no growth. Other labs are pending, including blood culture, legionella, strep pneumo. Differential diagnosis: - infection: bacterial, viral, mycobacterial - inflammatory: vasculitis, SLE, etc - neoplasm: renal, hepatic, metastatic, lymphoma, bladder, etc - drugs: antibiotics, etc - miscellaneous: endocrine (e.g. adrenal insufficiency), atrial myxoma I ordered a CT scan of chest/abdomen/pelvis without contrast for now - given SARTHAK I am holding off on IV contrast presently. I ordered a TTE for tomorrow. I added an ESR to the morning lab also. I reviewed with patient and his , Maida. They are in agreement to proceed. I assured them we will consider additional testing over time as deemed appropriate.
[2024-03-29] MEDS: ENOXAPARIN 40 MG/0.4 ML INJ SUBCUT (21:37)
[2024-03-30] VITALS (12 sets, daily range): BP systolic 116–137; BP diastolic 78–82; PULSE 72–97; RESP 16–20; TEMP 36.8–38.2; O2SAT 95–98
[2024-03-30] MEDS: PIPERACILLIN/TAZOBACTAM 3.375 GM in 0.9 % SODIUM CHLORIDE Mini-bag 100 ML IVPB ×3 (03:33→21:22)
--- NOTE | 2024-03-30 04:28 | PC.NURSE ---
Shift note: No fever recorded since 1899 yesterday. Pt continue to use [facility] stedy with A2 for transfer. Alert and oriented with occasional confusion. Pt continue to have urinary incontinence. Vitally stable, pt had adequate sleep.
[2024-03-30 06:31] LABS: Hematocrit 39.4 % (37.0-53.0); Mean Corpuscular HGB Conc 33 gm/dL (32-36); Mean Corpuscular Hemoglobin 29 pg (26-34); Mean Corpuscular Volume 87 fL (80-100); Platelet Count* 192 K/uL (140-440); Red Blood Count 4.54 m/uL (4.30-5.90); White Blood Count* 10.22 K/uL (4.50-11.00)
[2024-03-30 06:34] LABS: Slide Review Reflex No
[2024-03-30 06:44] LABS: Chloride* 104 mmol/L (96-114)
[2024-03-30 06:45] LABS: Potassium* 4.2 mmol/L (3.6-5.1); Sodium* 134 mmol/L (135-149)
[2024-03-30 06:47] LABS: Creatinine* 1.7 mg/dL (0.5-1.5); Est. Creatinine Clearance* 57.06; Estimated Glomerular Filt Rate 49 ml/min
[2024-03-30 06:48] LABS: Anion Gap 6 mEq/L (7-15); Blood Urea Nitrogen* 22 mg/dL (7-30); Carbon Dioxide* 24 mmol/L (20-32); Glucose* 123 mg/dL (60-115)
[2024-03-30 07:03] LABS: C Reactive Protein* 16.3 mg/dL (0.5-1.0)
[2024-03-30 07:28] LABS: Erythrocyte SedimentationRate* 72 mm/hr (2-15)
[2024-03-30] MEDS: SODIUM CHLORIDE 0.9 % (FLUSH) 10 ML SYRINGE 5 ML IVF ×3 (09:47→21:22)
[2024-03-30] MEDS: TOPIRAMATE 50 MG TABLET 100 MG PO (09:47)
[2024-03-30] MEDS: BACLOFEN 10 MG TABLET PO ×3 (09:47→21:22)
[2024-03-30] MEDS: polyethylene glycoL 3350 17 GM PACK PO (09:59)
[2024-03-30 10:35] LABS: PCR FLU A Negative PCR FLU A (Negative); PCR FLU B Negative PCR FLU B (Negative); PCR RSV Negative PCR RSV (Negative); SARS PCR* Negative SARS-CoV-2 (Negative)
--- NOTE | 2024-03-30 13:37 | PM.DS1 ---
DS: Providers Provider Date Seen: 03/30/24 Date of admission: 03/28/24 15:49 Primary care physician: Not a Local Provider Admitting Clinician: Zach Villalta MD Consults: 03/28/24 15:41 Consult to Occupational Therapy [CONS] Routine Comment: Reason(s) for OT Consult:: Evaluate and Treat Any Restrictions?:: No Restrictions Consult to Physical Therapy [CONS] Routine Comment: Reason(s) for PT Consult:: Evaluate and Treat Any Restrictions?:: No Restrictions Attending Physician on discharge: MARILYN Tellez, PAYovannyC [facility] Date of Discharge: 03/30/24 DS: Diagnosis Discharge Diagnosis (1) Fever: Status: Acute Problem details: Of unknown source on admission Urine culture showing no growth. Leukocytosis and CRP trending down. No abdominal complaints, denies flank pain, benign exam CXR shows basilar airspace opacities with differential of developing/atypical pneumonia. No pulmonary complaints otherwise Recent COVID exposure ( positive 03/17). COVID x2 negative - will continue daily as long as he continues to have fevers Blood culture showing no growth. Urine culture negative showing < 10,000 mixed Gram-positive ana (2) Renal calculus: Status: Acute Problem details: CT 03/29 shows 11 mm calculus in the right renal hilum with mild hydronephrosis. 8 mm calculus in the distal left ureter with moderate upstream hydroureteronephrosis. Mild asymmetric left perinephric stranding. Bilateral nonobstructive renal calculi. Could be source of fever 03/30: Discussed with [facility], Dr. Garcia, recommending transfer for left ureteral stent. Discussed with hospitalist, Dr. Delonte Rodriguez, [facility], accepting to Med Surg floor. 8 hour bed delay. (3) Pneumonia: Status: Acute Problem details: Will use as working dx for now given leukocytosis, elevated CRP, CXR findings Continue Zosyn (ceftriaxone discontinued) Strep pneumo/Legionella negative Pulmonary hygiene 03/29: CT chest shows subsegmental atelectasis, no acute infiltrates, pulmonary nodules as noted, no pleural effusions or pneumothorax. Other than atypical pneumonia, this would otherwise rule this out (4) Sepsis: Status: Resolved Problem details: - early sepsis, NEWS2 score: 5 (1 temp, 1 HR, 3 consciousness), moderate risk for sepsis - acute cystitis ruled out - serum lactate values normal. Initiated ceftriaxone for suspected urinary tract infection - discontinued, switched to Zosyn Resolved prior to transfer (5) SARTHAK (acute kidney injury): Status: Acute Problem details: Suspected ASRTHAK. 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 - utilizes incontinence care products. - follows with Urology, [facility], Dr. Lewis. - check postvoid residual volumes while in hospital and consider catheter if warranted. (8) Multiple sclerosis, relapsing-remitting: Status: Acute Problem details: - in-hospital will have Physical therapy and Occupational therapy assess and recommend May need SNF, therapies evaluating (9) Unstable gait: Status: Acute Problem details: - fall precautions, PT/OT (10) Pulmonary nodules: Status: Acute Problem details: CT 03/29 showing incidental findings of Few scattered sub 6 mm pulmonary nodules. Director Of Speech Pathology examples include 4 mm right lower lobe subpleural nodule (series 3, image 67), 4 mm right middle lobe nodule (series 3, image 59), 5 mm right middle lobe nodule (series 3, image 55), and 2 mm right upper lobe nodule (series 3, image 36). No pleural effusions or pneumothorax Recommend outpatient follow-up with PCP DS: Summary Hospital Course Hospital Course: [age] year old male was admitted to the medical floor for fevers of unknown origin. Course of care and details as noted above. During course of hospital stay, initiated on IV ceftriaxone, changed to oral Zosyn, urine culture blood cultures negative. CT concerning for 8 mm ureteral calculus and hydronephrosis. Discussed with [facility], Dr. Garcia, requesting transfer for stenting. Discussed with [facility], Dr. Rodriguez, excepting for transfer to Med surg unit. 8 hour bed delay. Patient remains vitally stable. Continues on IV Zosyn. Remainder of chronic medical comorbidities were monitored and managed with home medications. Status at Discharge Overall status at discharge: patient is progressing back to baseline Time Spent with Patient Time attestation: Total time spent providing and/or coordinating discharge services: Time spent: Greater than 30 minutes Exam Narrative: Exam Narrative: PHYSICAL EXAM General: Pleasant, conversant, NAD Cardiovascular: RRR Pulmonary: No dyspnea Neurological: Alert, answering questions appropriately Skin: Warm, dry. Const: Vital Signs, click to edit/add: Vital Signs - 24 hr 03/29/24 16:00 03/29/24 16:00 03/29/24 16:00 Temperature 101.2 F H Pulse Rate [Left R adial] 92 Pulse Rate [Right Pulse Oximeter] 92 92 Respiratory Rate 18 18 Blood Pressure [Le ft Arm] 130/64 Pulse Oximetry 96 96 Oxygen Delivery Ut thod Room Air Room Air 03/29/24 16:56 03/29/24 19:00 03/29/24 19:08 Temperature 101.2 F H 99.3 F 100.2 F H Pulse Rate [Left R adial] Pulse Rate [Right Pulse Oximeter] 95 Respiratory Rate 18 Blood Pressure [Le ft Arm] 108/66 Pulse Oximetry 96 Oxygen Delivery Ut thod Room Air 03/29/24 22:20 03/29/24 22:20 03/29/24 22:20 Temperature 98.9 F Pulse Rate [Left R adial] Pulse Rate [Right Pulse Oximeter] 89 89 Respiratory Rate 18 18 18 Blood Pressure [Le ft Arm] 125/79 Pulse Oximetry 97 [facility] 03/30/24 02:44 03/30/24 10:13 03/30/24 10:14 Temperature 98.8 F 98.8 F Pulse Rate [Left R adial] Pulse Rate [Right Pulse Oximeter] 86 97 Respiratory Rate 18 16 20 Blood Pressure [Le ft Arm] 122/82 137/82 Pulse Oximetry 98 97 [facility] Room Air DS: Data Data Completed and Pending Labs on day of discharge: Labs from last 24 hours 03/30/24 03/30/24 09:53 05:57 WBC 10.22 RBC 4.54 Hgb 13.0 L Hct 39.4 MCV 87 MCH 29 MCHC 33 Plt Count 192 ESR 72 H Sodium 134 L Potassium 4.2 Chloride 104 Carbon Dioxide 24 Anion Gap 6 L BUN 22 Creatinine 1.7 H Estimated Creat Clear 57.06 Estimated GFR 49 Glucose 123 H Calcium 9.0 C-Reactive Protein 16.3 H SARS-CoV-2 (PCR) Negative SARS-CoV-2 Influenza Type A (PCR) Negative PCR FLU A Influenza Type B (PCR) Negative PCR FLU B RSV (PCR) Negative PCR RSV Preliminary micro results at discharge 03/29/24 08:34 Blood Culture - Preliminary Blood NO GROWTH AFTER [address] chest abdomen pelvis: Attestation: I have reviewed the pertinent imaging results. Radiologist's impression: CT chest, abdomen, and pelvis without contrast. COMPARISON: Chest radiographs 03/28/2024. FINDINGS: CHEST: Lungs and pleura: Few linear parenchymal bands, likely representing subsegmental atelectasis. Otherwise no acute infiltrates. Few scattered sub 6 mm pulmonary nodules. Director Of Speech Pathology examples include 4 mm right lower lobe subpleural nodule (series 3, image 67), 4 mm right middle lobe nodule (series 3, image 59), 5 mm right middle lobe nodule (series 3, image 55), and 2 mm right upper lobe nodule (series 3, image 36). No pleural effusions or pneumothorax. Cardiovascular structures: Heart size is normal. Thoracic aorta and main pulmonary artery are normal in caliber. Mediastinum and [place]: No mass or adenopathy. Chest wall and axilla: No mass or adenopathy. Bones: Unremarkable for age. ABDOMEN AND PELVIS: Liver: Focal fatty infiltration adjacent to the falciform ligament. Gallbladder and bile ducts: Cholelithiasis. No inflammation. No biliary ductal dilatation. Spleen: Unremarkable. Adrenal glands: Unremarkable. Pancreas: Unremarkable. Kidneys: 11 mm calculus in the right renal hilum with mild hydronephrosis. 8 mm calculus in the distal left ureter with moderate upstream hydroureteronephrosis. Mild asymmetric left perinephric stranding. Bilateral nonobstructive renal calculi. GI tract: Unremarkable. Lymph nodes: Unremarkable. Vascular structures: Abdominal aorta is normal in caliber. Miscellaneous: Unremarkable. No free air or significant free fluid. Pelvic organs: Unremarkable. Bones: Unremarkable for age. IMPRESSION: 1. 8 mm distal left ureteral calculus with moderate upstream hydroureteronephrosis. Mild asymmetric left perinephric stranding, which may be due to increased hydrostatic pressures or superimposed infectious process. Recommend correlation with urinalysis. 2. 11 mm right renal hilum calculus with mild hydronephrosis. 3. Bilateral nonobstructive nephrolithiasis. 4. No acute pulmonary process. 5. Few scattered sub 6 mm pulmonary nodules. Please see below for follow-up guidelines. 6. Cholelithiasis. SOCIETY GUIDELINES - SOLID NODULES: SINGLE LOW RISK - nodule less than 6 mm: No routine follow-up. - nodule 6-8 mm: CT at 6-12 months, then consider CT at 18-24 months. - nodule greater than 8 mm: Consider CT at 3 months, PET/CT or tissue sampling. SINGLE HIGH RISK - nodule less than 6 mm: Optional CT at 12 months. - nodule 6-8 mm: CT at 6-12 months, then CT at 18-24 months. - nodule greater than 8 mm: Consider CT at 3 months, PET/CT or tissue sampling. MULTIPLE LOW RISK - nodule less than 6 mm: No routine follow-up. - nodule 6-8 mm: CT at 3-6 months, then consider CT at 18-24 months. - nodule greater than 8 mm: CT at 3-6 months, then consider CT at 18-24 months. MULTIPLE HIGH RISK - nodule less than 6 mm: Optional CT at 12 months. - nodule 6-8 mm: CT at 3-6 months, then at 18-24 months. - nodule greater than 8 mm: CT at 3-6 months, then at 18-24 months. Chest x-ray: Attestation: I have reviewed the pertinent imaging results. Radiologist's impression: Two view(s) of the chest. Comparison: None available. Findings: Normal cardiomediastinal silhouette. Lungs are mildly hypoinflated with bronchovascular crowding. Minimal hazy basilar airspace opacities bilaterally without dense consolidation. No pleural effusion. No pneumothorax. No acute osseous abnormality identified. Impression: Hypoinflated lungs with minimal hazy basilar airspace opacities which may represent atelectasis due to underinflation. Differential includes developing/atypical pneumonia. Discharge Plan Discharge Disposition: [facility] Discharge Location: [facility] Date of Admission: 03/28/24 15:49 Attending Provider on Discharge: Lora Gonzales Primary Care Provider: Provider,Not a Local Condition: Stable Discharge Orders: Transfer of Care to Other Hospital (ORDER); Ordered 03/30/24 Ordered By: Lora Gonzales Additional Instructions: Transferred to [facility] for further cares not available at this facility. Pulmonary nodules noted on CT. Outpatient follow up with PCP, with repeat imaging as deemed necessary. Oxygen: No Urinary Catheter: No Services not available here: Urology
[2024-03-30] MEDS: ACETAMINOPHEN 325 MG TABLET 650 MG PO (15:01)
[2024-03-30] MEDS: IBUPROFEN 400 MG TABLET PO (17:58)
--- NOTE | 2024-03-30 19:35 | PC.NURSE ---
End of shift [id number] - Pt alert, oriented to self/place/situation, intermittently disoriented to time during shift. Tolerating RA, regular diet and later NPO diet. Pt denied pain, SOB, N/V. Noted to not be a reliable self-report for comfort and instances of incontinence. Pt transferred from bed to chair with 2 assist and Chantel steady. Family at bedside. Pt's spouse reported to RN that she had concerns regarding pt information being shared with unauthorized family members, that family members had mentioned they could add medications to the pt's food and drink, and that the spouse felt as though medical staff was sharing medical information inappropriately. RN discussed concerns with pt spouse, provided emotional support, and discussed interventions with charge nurse to address concerns. Pt noted to have fever of 100.8F during shift, given medication per MAR with little improvement. Recheck of temperature noted to read 100.5F, medication given per MAR with reassessment time falling outside of this RN's shift. Information relayed to oncoming shift for temperature recheck and fever management. Pt appears to be resting comfortably in bed at end of shift.
[2024-03-30] MEDS: ENOXAPARIN 40 MG/0.4 ML INJ SUBCUT (21:22)
--- NOTE | 2024-03-31 00:35 | PC.NURSE ---
Discharge note: EMS arrived at 0018 for patient's transfer to [place]. Discharge vital signs checked and recorded as T 98.2, P 72, RR 18, O2 97, and Bp 116/82. Pt was stable per baseline and needing A2 for transfer with [facility]. Patient and family educated on the need for the transfer and expectations. EMS left the unit at 0025.
== END 2024-03-31 00:25 | disposition short-term general hospital (02) | DRG 693 ==
LOC: ED 08:33 → MEDSURG 13:34
PROVIDERS: Internal Medicine; Physician Assistant; Admitting Provider Family Medicine; Emergency Provider Emergency Medicine; Visit Provider Family Medicine
DX: N13.2 Hydronephrosis with renal and ureteral calculous obstruction (principal); A41.9 Sepsis, unspecified organism; J18.9 Pneumonia, unspecified organism; G93.41 Metabolic encephalopathy; N17.9 Acute kidney failure, unspecified; G35 Multiple sclerosis; R33.8 Other retention of urine; E86.0 Dehydration; R26.89 Other abnormalities of gait and mobility; Z91.81 History of falling; R91.8 Other nonspecific abnormal finding of lung field
CPT/HCPCS: 36415; 51798; 71046; 71250; 74176; 80048; 81001; 83036; 83605; 85025; 85027; 85651; 86140; 87040; 87086; 87449; 87631; 87899; 93005; 93306; 97112; 97162; 97165; 97530; 97535; 99284; 99285; A9270; J0696; J1650; J2543; J7030

== ENCOUNTER 2024-03-31 00:20 | Outpatient (CLI) | payer MEDICARE, SELFPAY | END 2024-03-31 00:21 | disposition home or self-care (01) | PROVIDERS: Visit Provider Family Medicine | DX: N20.0 Calculus of kidney (principal); R50.9 Fever, unspecified; J18.9 Pneumonia, unspecified organism | CPT/HCPCS: A0425; A0427 ==

== ENCOUNTER 2024-08-22 12:55 | Emergency (ER) | payer MEDICARE, SELFPAY ==
[2024-08-22 13:10] VITALS: BP 114/72; PULSE 78; RESP 18; TEMP 36.1; O2SAT 99; BMI 24.8
--- NOTE | 2024-08-22 13:11 | CRLHL7_ITS ---
For Patients: As a result of the Century Cures Act, medical imaging exams and procedure reports are released immediately into your electronic medical record. You may view this report before your referring provider. If you have questions, please contact your health care provider. Indication: PAIN, SWELLING Technique: Three views of the left wrist Comparison: None Findings/Impression: Transverse fracture of the distal left radial metaphysis. The distal fracture segment maintains its articulation with the proximal carpal row. The proximal fracture segment is subluxed volarly by approximally 7 centimeters. Comminuted, predominantly transverse fracture of the distal left radial metaphysis with medial fracture fragment displaced medially, projecting over the radioulnar joint space. No suspicious osseous lesions. Moderate soft tissue swelling about the wrist. Dictated by Nasim Bergeron MD @ 08/22/2024 1:49:04 PM (Electronically Signed)
--- NOTE | 2024-08-22 13:39 | ED_ITS ---
HPI - General Adult General Chief complaint: Extremity Pain/Injury, Upper Stated complaint: Fell down stairs, pain in left wrist Time Seen by Provider: 08/22/24 13:10 Source: patient and family Mode of arrival: ambulatory Limitations: no limitations History of Present Illness HPI narrative: 48-year-old male presenting today with left wrist pain. Patient lost his balance at the top of 6 steps and fell down the stairs backwards. He did hit his head on a toy chest that was at the bottom of the stairs. He braced his fall with his left arm and felt immediate pain of the left wrist upon falling. Patient does have a history of MS and unsteady gait. He denies headache, neck pain, chest or back pain. He denies abdominal discomfort. He denies pain in other extremities. He denies confusion, altered speech, changes in his vision or hearing. Per his , he has been acting normally since the fall. Related Data Home Medications ?Medication ?Instructions ?Recorded ?Confirmed baclofen 10 mg tablet 10 mg PO TID 03/28/24 03/28/24 topiramate 100 mg tablet (Topamax) 100 mg PO DAILY 03/28/24 03/28/24 Allergies Allergy/AdvReac Type Severity Reaction Status Date / Time No Known Drug Allergies Allergy Verified 03/28/24 08:12 Review of Systems Status of ROS: Reports: 10 or more systems reviewed and unremarkable except as noted in History and below [facility] Medical History Incomplete bladder emptying ?R33.9 - Retention of urine, unspecified (ICD-10) Colon polyp ?K63.5 - Polyp of colon (ICD-10) Unstable gait ?R26.81 - Unsteadiness on feet (ICD-10) Multiple sclerosis, relapsing-remitting ?G35 - Multiple sclerosis (ICD-10) Surgical History History of colonoscopy ?Z98.890 - Other specified postprocedural states (ICD-10) Family History Father Colon cancer Sister Diabetes Multiple sclerosis Social History Narrative: Lives with , Maida, whom he designates as POA should that be required. Medically disabled. Requests full resuscitation in event of cardiopulmonary demise. What is your current living situation?: I presently have a place to live Problems where you live: no known problems Problems where you live details: none In the past 12 months, utilities in danger of being shut off: no In past 12 months, lack of transportation kept you from medical appts, meetings, work, or getting things needed for daily living: no In the past 12 mos, have been you worried that your food would run out before you had money to buy more?: never true In the past 12 mos, the food you bought just didn't last and you didn't have money to buy more?: never true Smoking Status: Never smoker Do you use any of these nicotine containing products: None How often do you have a drink containing alcohol: never AUDIT-C Alcohol total score: 0 Non-prescribed substance use: denies use How often does anyone, including family, friends and others, physically hurt you : never How often does anyone, including family, friends and others, insult or talk down to you: never How often does anyone, including family, friends and others, threaten you with harm: never How often does anyone, including family, friends and others, scream or curse at you: never service: No Exam Narrative: Exam Narrative: Well-nourished well-developed patient in no acute distress. Alert and oriented x3. Answers questions appropriately. Mood and affect are appropriate. Thoughts are goal oriented and rational. No tangential or magical thinking n oted. Patient speaks in full sentences without needing to catch his breath. GCS is 15. Patient is speaking and breathing without difficulty. There is no obvious significant bleeding noted. HEENT: Normocephalic. Patient has a very small superficial bruise of the right frontal area. Area is nontender. Pupils are equally round reactive to light. Extraocular muscles are intact. Conjunctivae are moist without any icterus noted. Moist mucous membranes. Posterior pharynx is normal. No trauma noted to the inside of the mouth. Neck is soft without discomfort. Cardiovascular: Heart is regular rate and rhythm S1 and S2 are present without any murmurs. Lungs: Clear to auscultation bilaterally no wheezes rhonchi or rales are appreciated. Patient takes deep breaths without any discomfort. Patient has no tenderness to palpation of the anterior, lateral posterior chest wall. Abdomen: Soft and nontender nondistended with normal bowel sounds. No guarding or rebound. No masses or organomegaly appreciated. Extremities: Bilateral lower extremities are without edema. Normal DP and PT pulses. Patient has obvious swelling and slight deformity of the left wrist. He has a normal radial pulse and capillary refill on that side. Moves fingers without pain or difficulty. Has pain with any movement at the wrist. Has pain both medially and laterally with palpation. Skin: Well perfused without any obvious rashes. Back: Normal appearance. Patient has no tenderness to palpation at the cervical, thoracic or lumbar spine. Patient has full range of motion at the neck with flexion, extension, side way bending and rotation without pain. Const: Vital Signs, click to edit/add: Vital Signs - 24 hr 08/22/24 13:10 Temperature 96.9 F L Pulse Rate [Pulse Oximeter] 78 Respiratory Rate 18 Blood Pressure [Ri ght Upper Arm] 114/72 Pulse Oximetry 99 Oxygen Delivery Ca thod Room Air Course Course ED Course: X-rays were obtained, read by me, shows fracture of the distal radius and ulna. there is volar displacement. Dr. Londono placed a hematoma block with 5 mL of lidocaine which provided adequate anesthesia. I was able to reduce the fracture. And arm was splinted with a sugar-tong splint. Placed in sling. Post reduction x-rays do show improvement. Vital Signs Vital signs: Initial Vital Signs Temperature 96.9 F L 08/22/24 13:10 Temperature Source Temporal Artery Scan 08/22/24 13:10 Pulse Rate 78 08/22/24 13:10 Respiratory Rate 18 08/22/24 13:10 Blood Pressure 114/72 08/22/24 13:10 Blood Pressure Mean 86 08/22/24 13:10 Pulse Oximetry 99 08/22/24 13:10 Oxygen Delivery Method Room Air 08/22/24 13:10 Vital Signs Temperature 96.9 F L 08/22/24 13:10 Pulse Rate 78 08/22/24 13:10 Respiratory Rate 18 08/22/24 13:10 Blood Pressure 114/72 08/22/24 13:10 Pulse Oximetry 99 08/22/24 13:10 Oxygen Delivery Method Room Air 08/22/24 13:10 Temperature 96.9 F L 08/22/24 13:10 Pulse Rate 78 08/22/24 13:10 Respiratory Rate 18 08/22/24 13:10 Blood Pressure 114/72 08/22/24 13:10 Pulse Oximetry 99 08/22/24 13:10 Oxygen Delivery Method Room Air 08/22/24 13:10 Medical Decision Making MDM Narrative Medical decision making narrative: 48-year-old male with fracture of the ulna and radius. Follow-up with orthopedics. Imaging Data Left wrist x-ray: Attestation: I have reviewed the pertinent imaging results. Radiologist's impression: Technique: Three views of the left wrist Comparison: None Findings/Impression: Transverse fracture of the distal left radial metaphysis. The distal fracture segment maintains its articulation with the proximal carpal row. The proximal fracture segment is subluxed volarly by approximally 7 centimeters. Comminuted, predominantly transverse fracture of the distal left radial metaphysis with medial fracture fragment displaced medially, projecting over the radioulnar joint space. No suspicious osseous lesions. Moderate soft tissue swelling about the wrist. Discharge Plan Discharge Clinical Impression: Fracture of radius and ulna Patient Disposition: Home, Self-Care Condition: Stable Additional Instructions: Keep arm in splint at all times. Okay to use Tylenol as needed for pain. You will need to follow-up with orthopedics later this week, a phone number will be provided to you. Call them today or 1st thing tomorrow morning to set up a ER follow-up appointment. Makeda sent to [facility], 4 tablets for pain. This is a narcotic pain medication can make you drowsy and dizzy. Be very careful when you take them as they do increase your risk of fall. The tablet also contains acetaminophen (Tylenol) - make sure you are not taking more than 3000 mg of Tylenol per 24 hours. Prescriptions: No Action baclofen 10 mg tablet 10 mg PO TID topiramate [Topamax] 100 mg tablet 100 mg PO DAILY Follow Up/Referrals: Provider,Not a Local [Primary Care Provider] - Stand Alone Forms: [facility] Info Instructions
--- NOTE | 2024-08-22 14:32 | CRLHL7_ITS ---
For Patients: As a result of the Century Cures Act, medical imaging exams and procedure reports are released immediately into your electronic medical record. You may view this report before your referring provider. If you have questions, please contact your health care provider. Indication: Post reduction Technique: Left wrist 3 view Comparison: Earlier same day wrist radiographs. Findings/Impression: The new overlying cast material obscures fine osseous and soft tissue detail. Improved postreduction alignment of the previously characterized displaced distal radial and ulnar fractures. No evident new injuries. Dictated by Mian Hawkins MD @ 08/22/2024 3:08:34 PM (Electronically Signed)
== END 2024-08-22 15:27 | disposition home or self-care (01) ==
PROVIDERS: Emergency Provider Family Medicine
DX: S52.602A Unspecified fracture of lower end of left ulna, initial encounter for closed fracture (principal); S52.92XA Unspecified fracture of left forearm, initial encounter for closed fracture; W10.9XXA Fall (on) (from) unspecified stairs and steps, initial encounter
CPT/HCPCS: 25605; 73100; 73110; 99284

== ENCOUNTER 2024-08-24 13:25 | Outpatient (CLI) | payer MEDICARE, SELFPAY ==
--- NOTE | 2024-08-24 13:30 | CRLHL7_ITS ---
For Patients: As a result of the Century Cures Act, medical imaging exams and procedure reports are released immediately into your electronic medical record. You may view this report before your referring provider. If you have questions, please contact your health care provider. INDICATION: Left wrist fracture. TECHNIQUE: Noncontrast CT of the left wrist. COMPARISON: Radiographs 08/22/2024. FINDINGS: Acute comminuted dorsally displaced fracture of the distal radius demonstrating 8 millimeters of dorsal displacement on sagittal image number 37 of series 7. No significant disruption of the scaphoid or lunate fossa articular surfaces. Fracture extends to the proximal margin of the sigmoid notch of the distal radius. Acute comminuted fracture of the distal ulna demonstrating 6 millimeters displacement. Fracture extends into the DRUJ. Scaphoid bone is intact. Other carpal bones are similarly intact. Soft tissue swelling is present IMPRESSION: 1. Acute comminuted dorsally displaced fracture of the distal radius with 8 mm dorsal displacement. No significant disruption of the scaphoid or lunate fossa articular surfaces. Fracture extends to the proximal margin of the sigmoid notch of the distal radius. 2. Acute comminuted fracture of the distal ulna with 6 mm displacement and extension into the DRUJ. Please note that all CT scans at this facility use dose modulation, iterative reconstruction, and/or weight-based dosing when appropriate to reduce radiation dose to as low as reasonably achievable. Dictated by Monty Bolaños MD @ 08/24/2024 3:06:32 PM (Electronically Signed)
== END 2024-08-24 13:26 | disposition home or self-care (01) ==
LOC: CT 13:26
PROVIDERS: PCP Student in an Organized Health Care Education/Training Program; Visit Provider Orthopaedic Surgery
DX: G35 Multiple sclerosis (principal); G93.9 Disorder of brain, unspecified; M50.221 Other cervical disc displacement at C4-C5 level; M50.222 Other cervical disc displacement at C5-C6 level; M47.894 Other spondylosis, thoracic region; S52.209A Unspecified fracture of shaft of unspecified ulna, initial encounter for closed fracture; S52.90XA Unspecified fracture of unspecified forearm, initial encounter for closed fracture
CPT/HCPCS: 73200

== ENCOUNTER 2024-08-29 13:30 | Outpatient (CLI) | payer MEDICARE, SELFPAY ==
--- NOTE | 2024-08-29 13:45 | CRLHL7_ITS ---
For Patients: As a result of the Century Cures Act, medical imaging exams and procedure reports are released immediately into your electronic medical record. You may view this report before your referring provider. If you have questions, please contact your health care provider. INDICATION: Multiple sclerosis, surveillance. TECHNIQUE: Multisequence multiplanar MRI of the brain prior to and following administration of 17 cc Dotarem gadolinium-based intravenous contrast. Multiple sclerosis protocol was utilized. COMPARISON: MRI brain dated 07/08/2023. FINDINGS: No appreciable change in scattered foci of T2 prolongation within the supratentorial white matter of both cerebral hemispheres. New rim enhancing lesion involving the right superior cerebellar peduncle (series 5, image 16). Additional scattered infratentorial signal abnormality within the cerebellar hemispheres appear similar to prior. No evidence of acute ischemia. Similar moderate T1 hypointense lesion load and thinning of the corpus callosum. Similar moderate diffuse cerebral atrophy. No ventricular obstruction. Flow voids of the larger intracranial arteries are preserved. Normal calvarial bone marrow signal intensity. Unremarkable orbits. Scattered paranasal sinus mucosal thickening. IMPRESSION: 1. New enhancing lesion within the right superior cerebellar peduncle consistent with active demyelination. 2. Otherwise, no interval change in scattered supratentorial and infratentorial white matter signal abnormality consistent with chronic demyelinating plaques. 3. Similar moderate diffuse parenchymal volume loss, moderate T1 hypointense lesion load, and thinning of the corpus callosum. Dictated by Jeffry Mary MD @ 08/30/2024 8:56:38 AM (Electronically Signed)
--- NOTE | 2024-08-29 14:30 | CRLHL7_ITS ---
For Patients: As a result of the Century Cures Act, medical imaging exams and procedure reports are released immediately into your electronic medical record. You may view this report before your referring provider. If you have questions, please contact your health care provider. Indication: Multiple sclerosis, surveillance. Technique: Multisequence multiplanar MRI of the cervical spine prior to and following administration of 17 cc Dotarem gadolinium based intravenous contrast. Comparison: MRI cervical spine dated 07/08/2023. Findings: Similar multifocal signal abnormality within the cervical spinal cord, dominant lesions at the C2-C3, C4-C5, C5-C6, and C7 levels. No new T2 hyperintense or enhancing lesion. Similar straightening of the normal cervical lordosis with multilevel disc desiccation and height loss. Unremarkable prevertebral soft tissues. C2-C3: Mild facet joint arthrosis. No significant spinal canal or neural foraminal stenosis. C3-C4: Small posterior disc osteophyte complex without significant spinal canal stenosis. Moderate bilateral neural foraminal narrowing associated with uncovertebral and facet joint arthrosis. C4-C5: Small posterior disc osteophyte complex without significant spinal canal stenosis. Moderate right and mild left neural foraminal narrowing associated with uncovertebral and facet joint arthrosis. C5-C6: Small posterior disc osteophyte complex without significant spinal canal stenosis. Mild right and moderate left neural foraminal narrowing associated with uncovertebral arthrosis. C6-C7: Degenerative vertebral ankylosis. No significant spinal canal stenosis. Mild right neural foraminal narrowing associated with uncovertebral hypertrophy. No significant left neural foraminal narrowing. C7-T1: Mild facet joint hypertrophy. No significant spinal canal or neural foraminal stenosis. Impression: 1. No interval change in multifocal signal abnormality within the cervical spinal cord consistent with chronic demyelinating plaques. 2. No new T2 hyperintense or enhancing lesion. 3. Similar multilevel neural foraminal narrowing, moderate bilaterally at C3-C4, on the right at C4-C5, and on the left at C5-C6. Dictated by Jeffry Mary MD @ 08/30/2024 9:12:52 AM (Electronically Signed)
--- NOTE | 2024-08-29 15:30 | CRLHL7_ITS ---
For Patients: As a result of the Century Cures Act, medical imaging exams and procedure reports are released immediately into your electronic medical record. You may view this report before your referring provider. If you have questions, please contact your health care provider. Indication: Multiple sclerosis, surveillance. Technique: Multisequence multiplanar MRI of the thoracic spine prior to and following administration of 17 cc Dotarem gadolinium based intravenous contrast. Comparison: MRI thoracic spine dated 07/08/2023. Findings: Similar multifocal signal abnormality within the thoracic spinal cord, for reference dominant lesions within the central cord at T6-T7 (series 7, image 37) and left hemicord at T9 (series 8, image 14). No new T2 hyperintense or enhancing lesion. Similar mild accentuation of the thoracic kyphosis and multilevel disc height loss. Vertebral body heights are maintained. Bone marrow signal intensity is within normal limits. The prevertebral soft tissues are unremarkable. Evaluation of the individual levels demonstrates no significant spinal canal or neural foraminal stenosis. Impression: 1. No interval change since 07/08/2023. 2. No new T2 hyperintense or enhancing lesion. 3. Multifocal signal abnormality within the thoracic spinal cord consistent with chronic demyelinating plaques. 4. Mild thoracic spondylosis with no significant spinal canal or neural foraminal stenosis. Dictated by Jeffry Mary MD @ 08/30/2024 9:20:24 AM (Electronically Signed)
== END 2024-08-29 13:31 | disposition home or self-care (01) ==
LOC: MRI 13:31
PROVIDERS: PCP Student in an Organized Health Care Education/Training Program; Visit Provider Psychiatry & Neurology Neurology
DX: G35 Multiple sclerosis (principal); M50.21 Other cervical disc displacement, high cervical region; M50.221 Other cervical disc displacement at C4-C5 level; M50.222 Other cervical disc displacement at C5-C6 level; M47.894 Other spondylosis, thoracic region
CPT/HCPCS: 70553; 72156; 72157; A9575

== ENCOUNTER 2024-09-21 16:00 | Outpatient (RCR) | payer MEDICARE, SELFPAY ==
--- NOTE | 2024-09-15 18:25 | OT.OPOE ---
OT Outpatient Ortho Eval OT Outpatient Ortho Eval* Start: 09/14/24 19:28 Freq: Status: Active Protocol: Document 09/15/24 17:45 AMB (Rec: 09/15/24 18:21 AMB [email or web address]) E-signed By Sho Douglas, OTR/L, CLT, GROUP BILLING COORDINATOR OT OP Ortho Eval Details Complexity Complexity Low Insurance Information Insurance Information Medicare B Outpatient History/Precautions Current Condition/Medical Diagnosis Referring Provider Dr Tejeda Medical Diagnoses Z98.89 S/p LUE wrist ORIF 09/02 Treatment Diagnosis M25.632 Stiffness LUE wrist R53.1 Weakness LUE Date of Onset 08/22/24 Other Conditions PMH (copied from medical chart ): Active Problems (Updated 08/24 @ 13:33 by Fozia Smith) Left wrist fracture (Acute) S62.102A - Fracture of unspecified carpal bone, left wrist, initial encounter for closed fracture (ICD-10) Fracture of radius and ulna ( Acute) S52.90XA - Unspecified fracture of unspecified forearm, initial encounter for closed fracture (ICD-10) S52.209A - Unspecified fracture of shaft of unspecified ulna, initial encounter for closed fracture (ICD-10) Acute cystitis (Ruled-out) RULED OUT - 03/28/2024: Fever, urinary frequency, abnormal urinalysis . Urine culture obtained with results pending. Started on ceftriaxone IV. N30.00 - Acute cystitis without hematuria (ICD-10) Pulmonary nodules (Acute) CT 03/29 showing incidental findings of Few scattered sub 6 mm pulmonary nodules. Clip Baker examples include 4 mm right lower lobe subpleural nodule (series 3, image 67), 4 mm right middle lobe nodule (series 3, image 59), 5 mm right middle lobe nodule ( series 3, image 55), and 2 mm right upper lobe nodule (series 3, image 36). No pleural effusions or pneumothorax Recommend outpatient follow-up with PCP R91.8 - Other nonspecific abnormal finding of lung field (ICD-10) Renal calculus (Acute) CT 03/29 shows 11 mm calculus in the right renal hilum with mild hydronephrosis. 8 mm calculus in the distal left ureter with moderate upstream hydroureteronephrosis. Mild asymmetric left perinephric stranding. Bilateral nonobstructive renal calculi. Could be source of fever 03/30: Discussed with [place] [facility], Dr. Garcia, recommending transfer for left ureteral stent. Discussed with hospitalist, Dr. Delonte Rodriguez, [facility], accepting to [facility] floor. 8 hour bed delay. N20.0 - Calculus of kidney ( ICD-10) SARTHAK (acute kidney injury) ( Acute) Suspected SARTHAK. Creatinine 1.9 on admission, trending down, 1 .7 prior to transfer No recent labs, previous Internal Communications Specialist 1 .08 in 2013 Avoid nephrotoxic medications, monitoring while on Zosyn N17.9 - Acute kidney failure, unspecified (ICD-10) Pneumonia (Acute) Will use as working dx for now given leukocytosis, elevated CRP, CXR findings Continue Zosyn (ceftriaxone discontinued) Strep pneumo/Legionella negative Pulmonary hygiene 03/29: CT chest shows subsegmental atelectasis, no acute infiltrates, pulmonary nodules as noted, no pleural effusions or pneumothorax. Other than atypical pneumonia, this would otherwise rule this out J18.9 - Pneumonia, unspecified organism (ICD-10) Fever (Acute) Of unknown source on admission Urine culture showing no growth. Leukocytosis and CRP trending down. No abdominal complaints, denies flank pain, benign exam CXR shows basilar airspace opacities with differential of developing/atypical pneumonia . No pulmonary complaints otherwise Recent COVID exposure ( positive 03/17). COVID x2 negative - will continue daily as long as he continues to have fevers Blood culture showing no growth. Urine culture negative showing < 10,000 mixed Gram-positive ana R50.9 - Fever, unspecified ( ICD-10) Incomplete bladder emptying ( Acute) - due to multiple sclerosis. - utilizes incontinence care products. - follows with Urology, [facility], Dr. [place]. - check postvoid residual volumes while in hospital and consider catheter if warranted . R33.9 - Retention of urine, unspecified (ICD-10) Unstable gait (Acute) - fall precautions, PT/OT R26.81 - Unsteadiness on feet (ICD-10) Multiple sclerosis, relapsing- remitting (Acute) - in-hospital will have Physical therapy and Occupational therapy assess and recommend May need SNF, therapies evaluating G35 - Multiple sclerosis (ICD- 10) Medical History (Reviewed 02/08 @ 13:40 by Sara Lee MD) Incomplete bladder emptying R33.9 - Retention of urine, unspecified (ICD-10) Colon polyp K63.5 - Polyp of colon (ICD-10 ) Unstable gait R26.81 - Unsteadiness on feet (ICD-10) Multiple sclerosis, relapsing- remitting G35 - Multiple sclerosis (ICD- 10) Surgical History (Reviewed 02/08 @ 13:40 by Sara Lee MD) History of colonoscopy Z98.890 - Other specified postprocedural states (ICD-10) Medical/Functional History Prior Level of Function/Mobility [facility] According to pt's , pt has not been very cooperative in regard to utilizing his cane or walker with ambulation and has had several other falls. Pt's has talked with pt about moving to a different home that is all on one level, pt has been resisting. Pt's works FT outside the home. Prior to recent fall/wrist fx, pt usually stayed home alone. Since the fall, pt has been staying with his MIL and KARRIE in their home as pt's does not feel pt is safe to be home alone. Prior to fall / wrist fx, pt was independent with self-care tasks and did help around the home with decorator street and building. For the most part, pt has maintained his independence with self- cares since his fall but is limited in helping with decorator street and building. Prior to wrist fx, pt's LUE was more stable and he was really able to rely on it for most activities, states his right one has been more affected by his MS and he has a hard time using it due to weakness and tremors. Now, pt is really struggling with using his right hand as well as he has limited ROM and the tremors are much worse. Social History Employment Status Disabled Hobbies Watching TV, fishing, used to like to mc before he became disabled Ortho Subjective Subjective Subjective Pt states that on 08/22/24 he was walking up the steps in their townhome and he fell backwards down the steps. The neighbor heard him and called his who immediately came home from work and got medical care for pt. He was seen in ER and diagnosed with LUE radius and ulna fx and referred to orthopedics. He initially saw Dr Moore on 08/24 who referred him to Dr Tejeda. Surgery was planned in [place] with Dr Tejeda on 08/26/24. It was then decided that pt needed to be seen by a specialist at [place], so he was referred to Dr Steve Alanis who did surgery on . Pt had his cast off yesterday and was told to go to therapy which was already planned and scheduled due to original surgery planned on 06/10. Pt states he feels he is doing ok, minimal pain, but is very concerned about regaining full use of his LUE as this was his good hand prior to his fall. Pt states his right hand is weaker and the tremors related to his MS have always been worse in his right hand. Pt is currently staying with his MIL/KARRIE during the day while his works as his does not feel he is safe to be at home. Pt will undergo additional surgery on 10/31/24 to remove hardware. Pain Assessment Pain Pain Yes Pain Comments 09/26, aches in the wrist. Goniometric Comments Goniometric Comments Goniometric Comments 09/15/24 Due to the nature of surgical incisions, software writer assumes that pt has a osman/ plate that extends through his wrist and into index finger, so ROM measurements were not taken of the wrist/forearm and the IF. (software writer did not receive op reports or any paperwork from [place] to confirm procedure / precautions, will f/u with Dr Alanis's clinic for clarification prior to next visit. AROM of the LUE fingers / thumb are as follows: MF: MP=0-52, PIP=0-50, DIP=0- 25 RF: MP=0-50, PIP=0-55, DIP=0- 25 SF: MP=0-50, PIP=0-60, DIP=0- 30 Thumb IP= 0-70, MP=0-20, opposition is to tip of RF. OT Objective Data Hand Hand Dominance Right Hand Function However, pt tended to use his left hand more often due to RUE being more affected by his MS. Skin/Wounds/Edema Comments 09/15/24 Incisional wounds are all very well healed, no s/s of infection, no opened areas and no drainage. However, skin is very dry and scaley, incisions are mildly adhered. Sensation Sensation Assessment Summary Comments 09/15/24 Pt denies paresthesia in his LUE. OT Problems Problems Problems Decreased Strength,Decreased Range of Motion,Decreased Dexterity,Pain,Decreased Coordination,Lifting,Gripping, Pinching Other Problems Opening Containers,Dressing, Computer,Fasteners Patient Potential Good Assessment Assessment Assessment Pt presents to OT evaluation today with his MIL and later joined by his when she finished her work shift. Pt ambulates from waiting room to OT gym with very unsteady gait. Discussed recent fall with patient. Strongly encouraged pt to utilize his AE (cane or walker) for gait as he is very unsteady and at a high risk for falls, pt hesitant, further discussed with pt's and she is in agreement. Discussed nature of their home which is a [place]. Recommended consideration of moving to one level living. Pt's states she has been trying to get pt to agree to this for a very long time, state pt is too stubborn, pt agrees but did reconsider when he saw his had tears, then states well, we can start looking.. Pt demonstrates significant limitations in LUE forearm, wrist, and hand AROM. Prior to this fall, pt relied heavily on his LUE as his RUE has been more affected by his MS and was difficult to use. Now, pt notes his tremors are much worse in his LUE and due to the weakness and limited mobility, he is really struggling to use his LUE. Pt maintains his independence with self cares but states it' s very difficult, really hard to feed himself and button buttons / zip zippers especially. Pt will benefit from skilled OT intervention to address LUE impairments in order to restore full, pain- free, functional use of his LUE. Occupational Therapy Treatment Plan - OP Potential Rehabilitation Potential Fair Barriers Barriers to goal attainment Hx of MS, multiple falls, unsteady gait, incompliance with use of AD for gait. Pt will be having an additional surgery on 10/31/24 to remove hardware Set Goals Goals Set with Patient Yes Goals Goals 1. Pt will be independent and compliant with HEP in order to resume full, pain-free use of the involved UE. 6 weeks 2. Pt will demonstrate full, pain-free AROM of the involved UE in order to improve ability to grasp and hold in order to use his IPad and cell phone. 10weeks 3. Pt will demonstrate pain- free broadcast maintenance engineer and pinch strength comparable to the uninvolved side in order to improve functional grasp, hold, reach, and lifting ability needed to complete self-care, leisure tasks, and to assist with chores around this house such as washing and folding laundry . 12 weeks. Treatment Plan Treatment Plan Evaluation,Edema Control,Joint Mobilization,Manual Therapy, Splinting,Wound Care/Scar Management,Therapeutic Exercise,Therapeutic Activities,Self Care/Home Management,Windows Security Analyst Training ,Education Expected Duration 12 weeks Home Program Home Program Home Program Initiated Home Program Specifics Provided training and practice in AROM and very gentle AAROM for the LUE MF, RF, and SF. Pt to work on these exercises 3-4x daily. Certification Certification Statement I Certify That: Therapy Services Provided, Therapy Plan Established, Therapy Plan Reviewed Certification Information Clinic ID # [id number] Initial Certification Date 09/15/24 Recertification Due Date 12/14/24 Provider Signature Required Yes Provider Signature Shows Agreement With POC & Medical Necessity Physician NPI Number Write NPI# Here Physician Comment/Change Comment or Changes Physician Signature & Date Requested Please Sign/Date Here
--- NOTE | 2024-09-15 18:26 | OT.OPOE ---
OT Outpatient Ortho Eval OT Outpatient Ortho Eval* Start: 09/14/24 19:28 Freq: Status: Active Protocol: Document 09/15/24 17:45 AMB (Rec: 09/15/24 18:21 AMB [email or web address]) E-signed By Sho Douglas, OTR/L, CLT, MUNITIONS HANDLER SUPERVISOR OT OP Ortho Eval Details Complexity Complexity Low Insurance Information Insurance Information Medicare B Outpatient History/Precautions Current Condition/Medical Diagnosis Referring Provider Dr Tejeda Medical Diagnoses Z98.89 S/p LUE wrist ORIF 09/02 Treatment Diagnosis M25.632 Stiffness LUE wrist R53.1 Weakness LUE Date of Onset 08/22/24 Other Conditions PMH (copied from medical chart ): Active Problems (Updated 08/24 @ 13:33 by Fozia Smith) Left wrist fracture (Acute) S62.102A - Fracture of unspecified carpal bone, left wrist, initial encounter for closed fracture (ICD-10) Fracture of radius and ulna ( Acute) S52.90XA - Unspecified fracture of unspecified forearm, initial encounter for closed fracture (ICD-10) S52.209A - Unspecified fracture of shaft of unspecified ulna, initial encounter for closed fracture (ICD-10) Acute cystitis (Ruled-out) RULED OUT - 03/28/2024: Fever, urinary frequency, abnormal urinalysis . Urine culture obtained with results pending. Started on ceftriaxone IV. N30.00 - Acute cystitis without hematuria (ICD-10) Pulmonary nodules (Acute) CT 03/29 showing incidental findings of Few scattered sub 6 mm pulmonary nodules. Garden Worker examples include 4 mm right lower lobe subpleural nodule (series 3, image 67), 4 mm right middle lobe nodule (series 3, image 59), 5 mm right middle lobe nodule ( series 3, image 55), and 2 mm right upper lobe nodule (series 3, image 36). No pleural effusions or pneumothorax Recommend outpatient follow-up with PCP R91.8 - Other nonspecific abnormal finding of lung field (ICD-10) Renal calculus (Acute) CT 03/29 shows 11 mm calculus in the right renal hilum with mild hydronephrosis. 8 mm calculus in the distal left ureter with moderate upstream hydroureteronephrosis. Mild asymmetric left perinephric stranding. Bilateral nonobstructive renal calculi. Could be source of fever 03/30: Discussed with [place] [facility], Dr. Garcia, recommending transfer for left ureteral stent. Discussed with hospitalist, Dr. Delonte Rodriguez, [facility], accepting to [facility] floor. 8 hour bed delay. N20.0 - Calculus of kidney ( ICD-10) SARTHAK (acute kidney injury) ( Acute) Suspected SARTHAK. Creatinine 1.9 on admission, trending down, 1 .7 prior to transfer No recent labs, previous C Developer 1 .08 in 2013 Avoid nephrotoxic medications, monitoring while on Zosyn N17.9 - Acute kidney failure, unspecified (ICD-10) Pneumonia (Acute) Will use as working dx for now given leukocytosis, elevated CRP, CXR findings Continue Zosyn (ceftriaxone discontinued) Strep pneumo/Legionella negative Pulmonary hygiene 03/29: CT chest shows subsegmental atelectasis, no acute infiltrates, pulmonary nodules as noted, no pleural effusions or pneumothorax. Other than atypical pneumonia, this would otherwise rule this out J18.9 - Pneumonia, unspecified organism (ICD-10) Fever (Acute) Of unknown source on admission Urine culture showing no growth. Leukocytosis and CRP trending down. No abdominal complaints, denies flank pain, benign exam CXR shows basilar airspace opacities with differential of developing/atypical pneumonia . No pulmonary complaints otherwise Recent COVID exposure ( positive 03/17). COVID x2 negative - will continue daily as long as he continues to have fevers Blood culture showing no growth. Urine culture negative showing < 10,000 mixed Gram-positive ana R50.9 - Fever, unspecified ( ICD-10) Incomplete bladder emptying ( Acute) - due to multiple sclerosis. - utilizes incontinence care products. - follows with Urology, [facility], Dr. [place]. - check postvoid residual volumes while in hospital and consider catheter if warranted . R33.9 - Retention of urine, unspecified (ICD-10) Unstable gait (Acute) - fall precautions, PT/OT R26.81 - Unsteadiness on feet (ICD-10) Multiple sclerosis, relapsing- remitting (Acute) - in-hospital will have Physical therapy and Occupational therapy assess and recommend May need SNF, therapies evaluating G35 - Multiple sclerosis (ICD- 10) Medical History (Reviewed 02/08 @ 13:40 by Sara Lee MD) Incomplete bladder emptying R33.9 - Retention of urine, unspecified (ICD-10) Colon polyp K63.5 - Polyp of colon (ICD-10 ) Unstable gait R26.81 - Unsteadiness on feet (ICD-10) Multiple sclerosis, relapsing- remitting G35 - Multiple sclerosis (ICD- 10) Surgical History (Reviewed 02/08 @ 13:40 by Sara Lee MD) History of colonoscopy Z98.890 - Other specified postprocedural states (ICD-10) Medical/Functional History Prior Level of Function/Mobility [facility] According to pt's , pt has not been very cooperative in regard to utilizing his cane or walker with ambulation and has had several other falls. Pt's has talked with pt about moving to a different home that is all on one level, pt has been resisting. Pt's works FT outside the home. Prior to recent fall/wrist fx, pt usually stayed home alone. Since the fall, pt has been staying with his MIL and KARRIE in their home as pt's does not feel pt is safe to be home alone. Prior to fall / wrist fx, pt was independent with self-care tasks and did help around the home with parachute rigger. For the most part, pt has maintained his independence with self- cares since his fall but is limited in helping with parachute rigger. Prior to wrist fx, pt's LUE was more stable and he was really able to rely on it for most activities, states his right one has been more affected by his MS and he has a hard time using it due to weakness and tremors. Now, pt is really struggling with using his right hand as well as he has limited ROM and the tremors are much worse. Social History Employment Status Disabled Hobbies Watching TV, fishing, used to like to mc before he became disabled Ortho Subjective Subjective Subjective Pt states that on 08/22/24 he was walking up the steps in their townhome and he fell backwards down the steps. The neighbor heard him and called his who immediately came home from work and got medical care for pt. He was seen in ER and diagnosed with LUE radius and ulna fx and referred to orthopedics. He initially saw Dr Moore on 08/24 who referred him to Dr Tejeda. Surgery was planned in [place] with Dr Tejeda on 08/26/24. It was then decided that pt needed to be seen by a specialist at [place], so he was referred to Dr Steve Alanis who did surgery on . Pt had his cast off yesterday and was told to go to therapy which was already planned and scheduled due to original surgery planned on 06/10. Pt states he feels he is doing ok, minimal pain, but is very concerned about regaining full use of his LUE as this was his good hand prior to his fall. Pt states his right hand is weaker and the tremors related to his MS have always been worse in his right hand. Pt is currently staying with his MIL/KARRIE during the day while his works as his does not feel he is safe to be at home. Pt will undergo additional surgery on 10/31/24 to remove hardware. Pain Assessment Pain Pain Yes Pain Comments 09/26, aches in the wrist. Goniometric Comments Goniometric Comments Goniometric Comments 09/15/24 Due to the nature of surgical incisions, writer producer assumes that pt has a osman/ plate that extends through his wrist and into index finger, so ROM measurements were not taken of the wrist/forearm and the IF. (writer producer did not receive op reports or any paperwork from [place] to confirm procedure / precautions, will f/u with Dr Alanis's clinic for clarification prior to next visit. AROM of the LUE fingers / thumb are as follows: MF: MP=0-52, PIP=0-50, DIP=0- 25 RF: MP=0-50, PIP=0-55, DIP=0- 25 SF: MP=0-50, PIP=0-60, DIP=0- 30 Thumb IP= 0-70, MP=0-20, opposition is to tip of RF. OT Objective Data Hand Hand Dominance Right Hand Function However, pt tended to use his left hand more often due to RUE being more affected by his MS. Skin/Wounds/Edema Comments 09/15/24 Incisional wounds are all very well healed, no s/s of infection, no opened areas and no drainage. However, skin is very dry and scaley, incisions are mildly adhered. Sensation Sensation Assessment Summary Comments 09/15/24 Pt denies paresthesia in his LUE. OT Problems Problems Problems Decreased Strength,Decreased Range of Motion,Decreased Dexterity,Pain,Decreased Coordination,Lifting,Gripping, Pinching Other Problems Opening Containers,Dressing, Computer,Fasteners Patient Potential Good Assessment Assessment Assessment Pt presents to OT evaluation today with his MIL and later joined by his when she finished her work shift. Pt ambulates from waiting room to OT gym with very unsteady gait. Discussed recent fall with patient. Strongly encouraged pt to utilize his AE (cane or walker) for gait as he is very unsteady and at a high risk for falls, pt hesitant, further discussed with pt's and she is in agreement. Discussed nature of their home which [place]. Recommended consideration of moving to one level living. Pt's states she has been trying to get pt to agree to this for a very long time, state pt is too stubborn, pt agrees but did reconsider when he saw his had tears, then states well, we can start looking.. Pt demonstrates significant limitations in LUE forearm, wrist, and hand AROM. Prior to this fall, pt relied heavily on his LUE as his RUE has been more affected by his MS and was difficult to use. Now, pt notes his tremors are much worse in his LUE and due to the weakness and limited mobility, he is really struggling to use his LUE. Pt maintains his independence with self cares but states it' s very difficult, really hard to feed himself and button buttons / zip zippers especially. Pt will benefit from skilled OT intervention to address LUE impairments in order to restore full, pain- free, functional use of his LUE. Occupational Therapy Treatment Plan - OP Potential Rehabilitation Potential Fair Barriers Barriers to goal attainment Hx of MS, multiple falls, unsteady gait, incompliance with use of AD for gait. Pt will be having an additional surgery on 10/31/24 to remove hardware Set Goals Goals Set with Patient Yes Goals Goals 1. Pt will be independent and compliant with HEP in order to resume full, pain-free use of the involved UE. 6 weeks 2. Pt will demonstrate full, pain-free AROM of the involved UE in order to improve ability to grasp and hold in order to use his IPad and cell phone. 10weeks 3. Pt will demonstrate pain- free maker up folding and pinch strength comparable to the uninvolved side in order to improve functional grasp, hold, reach, and lifting ability needed to complete self-care, leisure tasks, and to assist with chores around this house such as washing and folding laundry . 12 weeks. Treatment Plan Treatment Plan Evaluation,Edema Control,Joint Mobilization,Manual Therapy, Splinting,Wound Care/Scar Management,Therapeutic Exercise,Therapeutic Activities,Self Care/Home Management,Hardware Press Operator Training ,Education Expected Duration 12 weeks Home Program Home Program Home Program Initiated Home Program Specifics Provided training and practice in AROM and very gentle AAROM for the LUE MF, RF, and SF. Pt to work on these exercises 3-4x daily. Certification Certification Statement I Certify That: Therapy Services Provided, Therapy Plan Established, Therapy Plan Reviewed Certification Information Clinic ID # [id number] Initial Certification Date 09/15/24 Recertification Due Date 12/14/24 Provider Signature Required Yes Provider Signature Shows Agreement With POC & Medical Necessity Physician NPI Number Write NPI# Here Physician Comment/Change Comment or Changes Physician Signature & Date Requested Please Sign/Date Here
== END 2025-01-19 23:59 | disposition home or self-care (01) ==
PROVIDERS: Visit Provider Orthopaedic Surgery
DX: Z48.89 Encounter for other specified surgical aftercare (principal); Z51.89 Encounter for other specified aftercare
CPT/HCPCS: 97110; 97140; 97165; X5282

== ENCOUNTER 2024-12-22 07:30 | Outpatient (RCR) | payer MEDICARE, SELFPAY | END 2025-04-21 23:59 | disposition home or self-care (01) | PROVIDERS: PCP Student in an Organized Health Care Education/Training Program; Visit Provider Nurse Practitioner | DX: M25.632 Stiffness of left wrist, not elsewhere classified (principal); Z51.89 Encounter for other specified aftercare | CPT/HCPCS: 97110; 97140; 97165; 97535; X5282 ==